=== PATIENT | male | born 1945 | race American Indian/Alaskan Native ===

== ENCOUNTER 2021-11-21 15:03 | Inpatient (IN) | payer OTHER ==
[2021-11-21 16:13] LABS: Basophils % (Auto) 0.3 % (0.0-1.8); Eosinophils # (Auto) 0.1 K/mm3 (0.0-0.4); Eosinophils % (Auto) 1.5 % (0.0-4.3); Hematocrit 27.9 % (35.5-45.6); Lymphocytes # (Auto) 1.2 K/mm3 (1.2-5.4); Lymphocytes % (Auto) 14.6 % (13.4-35.0); Mean Corpuscular HGB Conc 32 % (32-34); Mean Corpuscular Volume 94 fl (84-94); Monocytes # (Auto) 0.5 K/mm3 (0.0-0.8); Monocytes % (Auto) 6.6 % (0.0-7.3); Platelet Count 200 K/mm3 (140-440); Red Blood Count 2.96 M/mm3 (3.65-5.03); Red Cell Distribution Width 15.3 % (13.2-15.2)
[2021-11-21 17:36] LABS: Calcium 9.4 mg/dL (8.4-10.2)
--- NOTE | 2021-11-22 02:38 | Emergency Department Report ---
ED General Adult HPI - General Chief complaint: Abdominal Pain Stated complaint: PENIS BLEEDING/ABD PAIN Time Seen by Provider: 11/22/21 02:24 Source: patient Mode of arrival: Ambulatory Limitations: No Limitations - History of Present Illness Initial comments: 76 yo M with h/o stage 4 kidney failure and Prostate CA s/p proctectomy who present with painless urination associated bleeding as well. Pt also reports diarrhea for the last 2 days. Last episode of diarrhea was yesterday. Pt also reports remote painless urination. No fever or chills or any other modifying or associated factors reported. Severity scale (0 -10): 8 - Related Data Home Medications Medication Instructions Recorded Confirmed Last Taken Ascorbic Acid [Vitamin C with Jenn 500 mg PO BID 11/22/21 11/22/21 11/21/21 Hips] 899 Atorvastatin Calcium 40 mg PO QAM 11/22/21 11/22/21 11/21/21 Bumetanide [Bumetanide 2 mg tab] 2 mg DAILY 11/22/21 11/22/21 11/22/21 Cyanocobalamin [Vitamin B-12] 1,000 mcg PO DAILY 11/22/21 11/22/21 11/21/21 Donepezil HCl 10 mg HS 11/22/21 11/22/21 11/21/21 Ferrous Sulfate [Ferrous Sulfate 324 mg PO DAILY 11/22/21 11/22/21 11/21/21 324 MG] Folic Acid [Folvite] 0.5 mg PO QDAY 11/22/21 11/22/21 11/21/21 Megestrol Acetate 40 mg PO QID 11/22/21 11/22/21 11/21/21 Pantoprazole Sodium 20 mg PO DAILY 11/22/21 11/22/21 11/21/21 Sodium Bicarbonate 650 mg PO BID 11/22/21 11/22/21 11/21/21 Tamsulosin [Flomax] 0.4 mg DAILY 11/22/21 11/22/21 11/21/21 09 allopurinoL [Zyloprim] 100 mg PO QDAY 11/22/21 11/22/21 11/21/21 amLODIPine 5 mg PO DAILY 11/22/21 11/22/21 11/21/21 carvediloL [Coreg] 6.25 mg PO BID 11/22/21 11/22/21 11/21/21 Allergies Allergy/AdvReac Type Severity Reaction Status Date / Time No Known Allergies Allergy Verified 11/21/21 15:22 ED Review of Systems ROS: Stated complaint: PENIS BLEEDING/ABD PAIN Other details as noted in HPI Comment: All other systems reviewed and negative Gastrointestinal: diarrhea Genitourinary: hematuria ED Past Medical Hx - Past Medical History Previous Medical History?: Yes Hx Hypertension: Yes - Medications Home Medications: Home Medications Medication Instructions Recorded Confirmed Last Taken Type Ascorbic Acid [Vitamin C with Jenn 500 mg PO BID 11/22/21 11/22/21 11/21/21 History Hips] 899 Atorvastatin Calcium 40 mg PO QAM 11/22/21 11/22/21 11/21/21 History Bumetanide [Bumetanide 2 mg tab] 2 mg DAILY 11/22/21 11/22/21 11/22/21 History Cyanocobalamin [Vitamin B-12] 1,000 mcg PO DAILY 11/22/21 11/22/21 11/21/21 History Donepezil HCl 10 mg HS 11/22/21 11/22/21 11/21/21 History Ferrous Sulfate [Ferrous Sulfate 324 mg PO DAILY 11/22/21 11/22/21 11/21/21 History 324 MG] Folic Acid [Folvite] 0.5 mg PO QDAY 11/22/21 11/22/21 11/21/21 History Megestrol Acetate 40 mg PO QID 11/22/21 11/22/21 11/21/21 History Pantoprazole Sodium 20 mg PO DAILY 11/22/21 11/22/21 11/21/21 History Sodium Bicarbonate 650 mg PO BID 11/22/21 11/22/21 11/21/21 History Tamsulosin [Flomax] 0.4 mg DAILY 11/22/21 11/22/21 11/21/21 History 09 allopurinoL [Zyloprim] 100 mg PO QDAY 11/22/21 11/22/21 11/21/21 History amLODIPine 5 mg PO DAILY 11/22/21 11/22/21 11/21/21 History carvediloL [Coreg] 6.25 mg PO BID 11/22/21 11/22/21 11/21/21 History ED Physical Exam - General Limitations: No Limitations General appearance: alert, in no apparent distress - Head Head exam: Present: normal inspection - Eye Eye exam: Present: normal appearance Pupils: Present: normal accommodation - ENT ENT exam: Present: normal exam, normal orophraynx, mucous membranes dry - Neck Neck exam: Present: normal inspection, full ROM. Absent: tenderness - Respiratory Respiratory exam: Present: normal lung sounds bilaterally. Absent: respiratory distress, accessory muscle use - Cardiovascular Cardiovascular Exam: Present: regular rate, normal rhythm, normal heart sounds - GI/Abdominal GI/Abdominal exam: Present: soft, normal bowel sounds. Absent: distended, tenderness - exam: Present: urethral discharge (bloody ) - Extremities Exam Extremities exam: Absent: pedal edema - Back Exam Back exam: Absent: tenderness - Neurological Exam Neurological exam: Present: alert, oriented X3 - Psychiatric Psychiatric exam: Present: normal affect - Skin Skin exam: Present: warm, normal color ED Course Vital Signs 11/21/21 11/22/21 11/22/21 15:19 03:41 03:44 Temperature 99.7 F H 98.0 F Pulse Rate 85 84 Respiratory 17 14 Rate Blood Pressure Blood Pressure 154/81 152/78 [Right] O2 Sat by Pulse 100 94 100 Oximetry 11/22/21 11/22/21 11/22/21 03:45 04:01 04:15 Temperature Pulse Rate Respiratory Rate Blood Pressure 152/78 144/75 144/75 Blood Pressure [Right] O2 Sat by Pulse 100 100 100 Oximetry 11/22/21 11/22/21 11/22/21 05:00 05:01 05:15 Temperature 97.9 F Pulse Rate 70 Respiratory 18 Rate Blood Pressure 144/75 152/78 Blood Pressure 152/77 [Right] O2 Sat by Pulse 100 100 100 Oximetry 11/22/21 11/22/21 11/22/21 05:31 05:45 06:01 Temperature Pulse Rate Respiratory Rate Blood Pressure 144/75 151/76 139/77 Blood Pressure [Right] O2 Sat by Pulse 100 100 100 Oximetry 11/22/21 11/22/21 11/22/21 06:15 06:31 06:45 Temperature Pulse Rate Respiratory Rate Blood Pressure 141/68 154/77 149/67 Blood Pressure [Right] O2 Sat by Pulse 100 100 100 Oximetry 11/22/21 11/22/21 11/22/21 07:01 07:15 07:31 Temperature Pulse Rate Respiratory Rate Blood Pressure 134/65 139/68 158/68 Blood Pressure [Right] O2 Sat by Pulse 100 100 100 Oximetry 11/22/21 11/22/21 11/22/21 07:46 10:04 10:16 Temperature Pulse Rate Respiratory Rate Blood Pressure 158/68 158/68 143/64 Blood Pressure [Right] O2 Sat by Pulse 100 100 100 Oximetry 11/22/21 11/22/21 11/22/21 10:30 10:46 11:00 Temperature Pulse Rate Respiratory Rate Blood Pressure 143/64 133/54 133/54 Blood Pressure [Right] O2 Sat by Pulse 100 100 100 Oximetry 11/22/21 11/22/21 11/22/21 12:15 12:31 12:45 Temperature Pulse Rate Respiratory Rate Blood Pressure 87/46 144/65 137/65 Blood Pressure [Right] O2 Sat by Pulse 99 99 Oximetry 11/22/21 11/22/21 11/22/21 13:01 13:15 13:31 Temperature Pulse Rate 88 84 87 Respiratory 15 14 12 Rate Blood Pressure 87/46 147/69 147/69 Blood Pressure [Right] O2 Sat by Pulse 99 100 100 Oximetry 11/22/21 11/22/21 11/22/21 13:45 14:01 14:15 Temperature Pulse Rate 88 86 91 H Respiratory 15 14 18 Rate Blood Pressure 131/69 131/69 143/67 Blood Pressure [Right] O2 Sat by Pulse 100 100 99 Oximetry 11/22/21 11/22/21 11/22/21 14:31 14:45 15:01 Temperature Pulse Rate 100 H 109 H 92 H Respiratory 20 21 15 Rate Blood Pressure 143/67 136/104 136/104 Blood Pressure [Right] O2 Sat by Pulse 100 100 Oximetry 11/22/21 11/22/21 11/22/21 15:02 15:15 15:31 Temperature Pulse Rate 92 H 105 H Respiratory 20 15 Rate Blood Pressure 131/69 131/69 Blood Pressure [Right] O2 Sat by Pulse 100 100 100 Oximetry 11/22/21 11/22/21 15:45 16:01 Temperature Pulse Rate 91 H 93 H Respiratory 16 18 Rate Blood Pressure 128/69 128/69 Blood Pressure [Right] O2 Sat by Pulse 100 100 Oximetry ED Medical Decision Making - Lab Data Result diagrams: 11/22/21 12:22 11/22/21 02:49 - Medical Decision Making here with painful hematuria with diarrhea -- this could be UTI and or bladder mass so will start by checking UA and routine coag profile -- Labs reviewed and noted with low H&H that is likely from his chronic renal failure with his stage 4 kidney failure. Will go ahead and start CBI until cleared and will discharge home with baxter catheter in place. Noticed improvement clot clearing with the second bag half way done-- but then noticed with bright red blood as soon as the 2nd bag of fluid was done. Will go ahead and start another 2,000 cc irrigation ns -- Critical care attestation.: If time is entered above; I have spent that time in minutes in the direct care of this critically ill patient, excluding procedure time. ED Disposition Clinical Impression: Stage 4 chronic kidney disease, Bladder hemorrhage, Painless hematuria Diarrhea Qualifiers: Diarrhea type: unspecified type Qualified Code(s): R19.7 - Diarrhea, unspecified Disposition: 09 ADMITTED INPATIENT Is pt being admited?: Yes Does the pt Need Aspirin: No Condition: Stable
[2021-11-22 03:21] LABS: INR 0.97 (0.87-1.13); Partial Thromboplastin Time 28.3 Sec. (24.2-36.6)
[2021-11-22 03:42] LABS: Alanine Aminotransferase 17 units/L (7-56); Albumin 4.5 g/dL (3.9-5); Blood Urea Nitrogen 87 mg/dL (9-20); Calcium 9.3 mg/dL (8.4-10.2); Hemolysis Index 1
[2021-11-22] MEDS ORDERED: SODIUM CHLORIDE 0.9% 1000 ML 3,000 ML IV ONE (04:00)
[2021-11-22 04:07] LABS: BUN/Creatinine Ratio 23; Bilirubin,Direct < 0.2 mg/dL (0-0.2)
[2021-11-22] MEDS: LIDOCAINE 2% UROJECT 10 ML JELLY UR ONE ×2 (04:10→17:45)
[2021-11-22 04:17] LABS: Color,Urine Red (Yellow); RBC,Urine > 182.0 /HPF (0.0-6.0)
[2021-11-22] MEDS: SODIUM CHLORIDE 0.9% IRRIG SOLN 2000 ML IR PRN ×3 (04:20→06:10)
[2021-11-22] MEDS ORDERED: SODIUM CHLORIDE 0.9% IRRIG SOLN 2000 ML IR SCH ×2 (06:00)
--- NOTE | 2021-11-22 07:29 | Emergency Department Report ---
ED Male HPI - General Chief complaint: Abdominal Pain Stated complaint: PENIS BLEEDING/ABD PAIN Time Seen by Provider: 11/22/21 02:24 Source: patient Mode of arrival: Ambulatory Limitations: No Limitations - Related Data Allergies Allergy/AdvReac Type Severity Reaction Status Date / Time No Known Allergies Allergy Verified 11/21/21 15:22 ED Review of Systems ROS: Stated complaint: PENIS BLEEDING/ABD PAIN Other details as noted in HPI Gastrointestinal: diarrhea Genitourinary: hematuria ED Past Medical Hx - Past Medical History Previous Medical History?: Yes Hx Hypertension: Yes ED Physical Exam - General Limitations: No Limitations General appearance: alert, in no apparent distress ED Course Vital Signs 11/21/21 11/22/21 11/22/21 15:19 03:44 05:00 Temperature 99.7 F H 98.0 F 97.9 F Pulse Rate 85 84 70 Respiratory 17 14 18 Rate Blood Pressure 154/81 152/78 152/77 [Right] O2 Sat by Pulse 100 100 100 Oximetry ED Medical Decision Making - Lab Data Result diagrams: 11/21/21 15:44 11/22/21 02:49 Critical care attestation.: If time is entered above; I have spent that time in minutes in the direct care of this critically ill patient, excluding procedure time. ED Disposition Disposition: 30 STILL A PATIENT Condition: Stable [facility]: [facility] [Other] - 3-5 Days
--- NOTE | 2021-11-22 07:34 | Emergency Department Report ---
ED Male HPI - General Chief complaint: Abdominal Pain Stated complaint: PENIS BLEEDING/ABD PAIN Time Seen by Provider: 11/22/21 02:24 Source: patient Mode of arrival: Ambulatory Limitations: No Limitations - History of Present Illness Initial comments: 76-year-old male who was patient seen initially seen by Dr. Monahan and signed out to me to d/c after bladder irrigation. Patient reinterviewed and examined. by me Patient presents to the hospital complaining of suprapubic pain, gross hematuria, dysuria, difficulty urinating for the past 2 days. Patient reports that he has a history of bladder cancer treated with prostatectomy in 1991. States he has had intermittent pink urine output that spontaneously resolved. This is the first time patient has had gross hematuria with associated symptoms reported. He denies nausea, vomiting, or fever. Patient also reports a history of chronic kidney disease and reports a creatinine of 3.4 2-3 weeks ago. Patient resides in [place] and is visiting the [place] area. [facility] Patient was treated with Baxter catheter and 4 L Alexander drip irrigation with reported clearance and leg bag was placed. Leg bag currently shows gross hematuria once again however, patient denies pain at this time He takes aspirin 81 mg but denies other anticoagulant use - Related Data Home Medications Medication Instructions Recorded Confirmed Last Taken Ascorbic Acid [Vitamin C with Jenn 500 mg PO BID 11/22/21 11/22/21 11/21/21 Hips] 0900 Atorvastatin Calcium 40 mg PO QAM 11/22/21 11/22/21 11/21/21 Bumetanide [Bumetanide 2 mg tab] 2 mg DAILY 11/22/21 11/22/21 11/22/21 Cyanocobalamin [Vitamin B-12] 1,000 mcg PO DAILY 11/22/21 11/22/21 11/21/21 Donepezil HCl 10 mg HS 11/22/21 11/22/21 11/21/21 Ferrous Sulfate [Ferrous Sulfate 324 mg PO DAILY 11/22/21 11/22/21 11/21/21 324 MG] Folic Acid [Folvite] 0.5 mg PO QDAY 11/22/21 11/22/21 11/21/21 Megestrol Acetate 40 mg PO QID 11/22/21 11/22/21 11/21/21 Pantoprazole Sodium 20 mg PO DAILY 11/22/21 11/22/21 11/21/21 Sodium Bicarbonate 650 mg PO BID 11/22/21 11/22/21 11/21/21 Tamsulosin [Flomax] 0.4 mg DAILY 11/22/21 11/22/21 11/21/21 0900 allopurinoL [Zyloprim] 100 mg PO QDAY 11/22/21 11/22/21 11/21/21 amLODIPine 5 mg PO DAILY 11/22/21 11/22/21 11/21/21 carvediloL [Coreg] 6.25 mg PO BID 11/22/21 11/22/21 11/21/21 Allergies Allergy/AdvReac Type Severity Reaction Status Date / Time No Known Allergies Allergy Verified 11/21/21 15:22 ED Review of Systems ROS: Stated complaint: PENIS BLEEDING/ABD PAIN Other details as noted in HPI Comment: Unobtainable due to pts medical conditions Gastrointestinal: diarrhea Genitourinary: hematuria ED Past Medical Hx - Past Medical History Previous Medical History?: Yes Hx Hypertension: Yes - Medications Home Medications: Home Medications Medication Instructions Recorded Confirmed Last Taken Type Ascorbic Acid [Vitamin C with Jenn 500 mg PO BID 11/22/21 11/22/21 11/21/21 History Hips] 899 Atorvastatin Calcium 40 mg PO QAM 11/22/21 11/22/21 11/21/21 History Bumetanide [Bumetanide 2 mg tab] 2 mg DAILY 11/22/21 11/22/21 11/22/21 History Cyanocobalamin [Vitamin B-12] 1,000 mcg PO DAILY 11/22/21 11/22/21 11/21/21 History Donepezil HCl 10 mg HS 11/22/21 11/22/21 11/21/21 History Ferrous Sulfate [Ferrous Sulfate 324 mg PO DAILY 11/22/21 11/22/21 11/21/21 History 324 MG] Folic Acid [Folvite] 0.5 mg PO QDAY 11/22/21 11/22/21 11/21/21 History Megestrol Acetate 40 mg PO QID 11/22/21 11/22/21 11/21/21 History Pantoprazole Sodium 20 mg PO DAILY 11/22/21 11/22/21 11/21/21 History Sodium Bicarbonate 650 mg PO BID 11/22/21 11/22/21 11/21/21 History Tamsulosin [Flomax] 0.4 mg DAILY 11/22/21 11/22/21 11/21/21 History 0900 allopurinoL [Zyloprim] 100 mg PO QDAY 11/22/21 11/22/21 11/21/21 History amLODIPine 5 mg PO DAILY 11/22/21 11/22/21 11/21/21 History carvediloL [Coreg] 6.25 mg PO BID 11/22/21 11/22/21 11/21/21 History ED Physical Exam - General Limitations: No Limitations General appearance: alert, in no apparent distress - GI/Abdominal GI/Abdominal exam: Present: soft, distended, normal bowel sounds. Absent: tenderness, guarding, rebound - exam: Present: other (baxter with gross hematuria) ED Course Vital Signs 11/21/21 11/22/21 11/22/21 15:19 03:41 03:44 Temperature 99.7 F H 98.0 F Pulse Rate 85 84 Respiratory 17 14 Rate Blood Pressure Blood Pressure 154/81 152/78 [Right] O2 Sat by Pulse 100 94 100 Oximetry 11/22/21 11/22/21 11/22/21 03:45 04:01 04:15 Temperature Pulse Rate Respiratory Rate Blood Pressure 152/78 144/75 144/75 Blood Pressure [Right] O2 Sat by Pulse 100 100 100 Oximetry 11/22/21 11/22/21 11/22/21 05:00 05:01 05:15 Temperature 97.9 F Pulse Rate 70 Respiratory 18 Rate Blood Pressure 144/75 152/78 Blood Pressure 152/77 [Right] O2 Sat by Pulse 100 100 100 Oximetry 11/22/21 11/22/21 11/22/21 05:31 05:45 06:01 Temperature Pulse Rate Respiratory Rate Blood Pressure 144/75 151/76 139/77 Blood Pressure [Right] O2 Sat by Pulse 100 100 100 Oximetry 11/22/21 11/22/21 11/22/21 06:15 06:31 06:45 Temperature Pulse Rate Respiratory Rate Blood Pressure 141/68 154/77 149/67 Blood Pressure [Right] O2 Sat by Pulse 100 100 100 Oximetry 11/22/21 11/22/21 11/22/21 07:01 07:15 07:31 Temperature Pulse Rate Respiratory Rate Blood Pressure 134/65 139/68 158/68 Blood Pressure [Right] O2 Sat by Pulse 100 100 100 Oximetry 11/22/21 11/22/21 11/22/21 07:46 10:04 10:16 Temperature Pulse Rate Respiratory Rate Blood Pressure 158/68 158/68 143/64 Blood Pressure [Right] O2 Sat by Pulse 100 100 100 Oximetry 11/22/21 11/22/21 11/22/21 10:30 10:46 11:00 Temperature Pulse Rate Respiratory Rate Blood Pressure 143/64 133/54 133/54 Blood Pressure [Right] O2 Sat by Pulse 100 100 100 Oximetry 11/22/21 11/22/21 11/22/21 12:15 12:31 12:45 Temperature Pulse Rate Respiratory Rate Blood Pressure 87/46 144/65 137/65 Blood Pressure [Right] O2 Sat by Pulse 99 99 Oximetry 11/22/21 11/22/21 11/22/21 13:01 13:15 13:31 Temperature Pulse Rate 88 84 87 Respiratory 15 14 12 Rate Blood Pressure 87/46 147/69 147/69 Blood Pressure [Right] O2 Sat by Pulse 99 100 100 Oximetry 11/22/21 11/22/21 11/22/21 13:45 14:01 14:15 Temperature Pulse Rate 88 86 91 H Respiratory 15 14 18 Rate Blood Pressure 131/69 131/69 143/67 Blood Pressure [Right] O2 Sat by Pulse 100 100 99 Oximetry 11/22/21 11/22/21 11/22/21 14:31 14:45 15:01 Temperature Pulse Rate 100 H 109 H 92 H Respiratory 20 21 15 Rate Blood Pressure 143/67 136/104 136/104 Blood Pressure [Right] O2 Sat by Pulse 100 100 Oximetry 11/22/21 11/22/21 11/22/21 15:02 15:15 15:31 Temperature Pulse Rate 92 H 105 H Respiratory 20 15 Rate Blood Pressure 131/69 131/69 Blood Pressure [Right] O2 Sat by Pulse 100 100 100 Oximetry 11/22/21 11/22/21 11/22/21 15:45 16:01 16:13 Temperature Pulse Rate 91 H 93 H 112 H Respiratory 16 18 28 H Rate Blood Pressure 128/69 128/69 111/79 Blood Pressure [Right] O2 Sat by Pulse 100 100 100 Oximetry - Reevaluation(s) Reevaluation #1: 11/22/21 11:51 pt Baxter catheter is obstructed and we were unable to irrigate it to free be obstruction. Patient also complaining of suprapubic pain. Pain medicine ordered and nurse instructed to exchange for a new three-way catheter this alleviated obstruction, new cath is draining 11/22/21 12:28 Patient has hypotension after morphine with systolic in the 80s. 1 L of normal saline order. Repeat H&H pending. Type and screen ordered 11/22/21 13:51 BP improved with IVF bolus repat hgb 8.1 (down from 9 yesterday) ED Medical Decision Making - Lab Data Result diagrams: 11/23/21 04:29 11/23/21 04:29 Lab Results 11/21/21 11/21/21 11/22/21 Range/Units 15:44 15:44 02:49 WBC 7.9 (4.5-11.0) K/mm3 RBC 2.96 L (3.65-5.03) M/mm3 Hgb 9.0 L (11.8-15.2) gm/dl Hct 27.9 L (35.5-45.6) % MCV 94 (84-94) fl MCH 31 (28-32) pg MCHC 32 (32-34) % RDW 15.3 H (13.2-15.2) % Plt Count 200 (140-440) K/mm3 Lymph % (Auto) 14.6 (13.4-35.0) % [place] % (Auto) 6.6 (0.0-7.3) % Eos % (Auto) 1.5 (0.0-4.3) % Baso % (Auto) 0.3 (0.0-1.8) % Lymph # (Auto) 1.2 (1.2-5.4) K/mm3 [place] # (Auto) 0.5 (0.0-0.8) K/mm3 Eos # (Auto) 0.1 (0.0-0.4) K/mm3 Baso # (Auto) 0.0 (0.0-0.1) K/mm3 Seg Neutrophils % 77.0 H (40.0-70.0) % Seg Neutrophils # 6.1 (1.8-7.7) K/mm3 PT 14.0 (12.2-14.9) Sec. INR 0.97 (0.87-1.13) APTT 28.3 (24.2-36.6) Sec. Sodium 138 (137-145) mmol/L Potassium 4.6 (3.6-5.0) mmol/L Chloride 103.8 (98-107) mmol/L Carbon Dioxide 20 L (22-30) mmol/L Anion Gap 19 mmol/L BUN 84 H (9-20) mg/dL Creatinine 3.9 H (0.8-1.3) mg/dL Estimated GFR 15 ml/min BUN/Creatinine Ratio 22 % Glucose 121 H (75-100) mg/dL Calcium 9.4 (8.4-10.2) mg/dL Total Bilirubin (0.1-1.2) mg/dL Direct Bilirubin (0-0.2) mg/dL Indirect Bilirubin mg/dL AST (5-40) units/L ALT (7-56) units/L Alkaline Phosphatase (35-129) units/L Total Protein (6.3-8.2) g/dL Albumin (3.9-5) g/dL Albumin/Globulin Ratio % Lipase 115 H (13-60) units/L Urine Color (Yellow) Urine Turbidity (Clear) Specific [place] (Man) (1.003-1.030) Ur Protein (Man) (Negative) mg/dL Ur Ketones (Man) (Negative) Ur Nitrite (Man) (Negative) Urine Bilirubin (Man) (Negative) Urine Ictotest Leukocyte Esterase (Man) (Negative) Urine WBC (Auto) (0.0-6.0) /HPF Urine RBC (Auto) (0.0-6.0) /HPF Urine RBC (Manual) (Negative) 11/22/21 11/22/21 Range/Units 02:49 03:53 WBC (4.5-11.0) K/mm3 RBC (3.65-5.03) M/mm3 Hgb (11.8-15.2) gm/dl Hct (35.5-45.6) % MCV (84-94) fl MCH (28-32) pg MCHC (32-34) % RDW (13.2-15.2) % Plt Count (140-440) K/mm3 Lymph % (Auto) (13.4-35.0) % [place] % (Auto) (0.0-7.3) % Eos % (Auto) (0.0-4.3) % Baso % (Auto) (0.0-1.8) % Lymph # (Auto) (1.2-5.4) K/mm3 [place] # (Auto) (0.0-0.8) K/mm3 Eos # (Auto) (0.0-0.4) K/mm3 Baso # (Auto) (0.0-0.1) K/mm3 Seg Neutrophils % (40.0-70.0) % Seg Neutrophils # (1.8-7.7) K/mm3 PT (12.2-14.9) Sec. INR (0.87-1.13) APTT (24.2-36.6) Sec. Sodium 139 (137-145) mmol/L Potassium 4.8 (3.6-5.0) mmol/L Chloride 105.4 (98-107) mmol/L Carbon Dioxide 17 L (22-30) mmol/L Anion Gap 21 mmol/L BUN 87 H (9-20) mg/dL Creatinine 3.8 H (0.8-1.3) mg/dL Estimated GFR 15 ml/min BUN/Creatinine Ratio 23 % Glucose 119 H (75-100) mg/dL Calcium 9.3 (8.4-10.2) mg/dL Total Bilirubin 0.30 (0.1-1.2) mg/dL Direct Bilirubin < 0.2 (0-0.2) mg/dL Indirect Bilirubin 0.1 mg/dL AST 18 (5-40) units/L ALT 17 (7-56) units/L Alkaline Phosphatase 63 (35-129) units/L Total Protein 7.0 (6.3-8.2) g/dL Albumin 4.5 (3.9-5) g/dL Albumin/Globulin Ratio 1.8 % Lipase 98 H (13-60) units/L Urine Color Red (Yellow) Urine Turbidity Turbid (Clear) Specific [place] (Man) 1.020 (1.003-1.030) Ur Protein (Man) >500 (Negative) mg/dL Ur Ketones (Man) Negative (Negative) Ur Nitrite (Man) Negative (Negative) Urine Bilirubin (Man) Negative (Negative) Urine Ictotest Not Reportable Leukocyte Esterase (Man) Small (Negative) Urine WBC (Auto) 52.0 H (0.0-6.0) /HPF Urine RBC (Auto) > 182.0 (0.0-6.0) /HPF Urine RBC (Manual) 3+ (Negative) - Radiology Data Radiology results: report reviewed CT ABDOMEN AND PELVIS WITHOUT CONTRAST INDICATION / CLINICAL INFORMATION: hematuria. TECHNIQUE: Axial CT images were obtained through the abdomen and pelvis without IV contrast. All CT scans at this location are performed using CT dose reduction for ALARA by means of automated exposure control. COMPARISON: None available. FINDINGS: LOWER CHEST: No significant abnormality. LIVER: No significant abnormality. GALLBLADDER: No significant abnormality. BILE DUCTS: No significant abnormality. PANCREAS: No significant abnormality. SPLEEN: No significant abnormality. ADRENALS: No significant abnormality. RIGHT KIDNEY / URETER: 3.8 cm hypodense lesion with CT density of 9 characteristic for cyst. Mild right sided hydronephrosis LEFT KIDNEY / URETER: 4.9 cm left upper pole slightly complex renal cyst with thin peripheral calcification with CT density of 11. STOMACH / SMALL BOWEL: No significant abnormality. COLON: Moderate colonic diverticulosis. APPENDIX: No significant abnormality. PERITONEUM: No free fluid. No free air. No fluid collection. LYMPH NODES: No significant adenopathy. AORTA / ARTERIES: No significant abnormality. IVC / VEINS: No significant abnormality. URINARY BLADDER: Contains Baxter catheter with moderate to large amount of intraluminal hemorrhage. 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 IMPRESSION: 1. Large amount of hemorrhage within the bladder of uncertain etiology with mild right hydronephrosis. 2. No urinary tract calculi or obvious enhancing solid renal or bladder mass on this limited noncontrast exam 2. Bilateral renal cysts, slightly complex upper pole left kidney. - Medical Decision Making 76-year-old male with persistent hematuria despite copious bladder irrigation. CT after irrigation attempts reveals a large amount of blood in the bladder. Pt had obstruction of cath requiring cath exchange while in the ED. IV Rocephin provided for increased RBC count/UTI. Renal function normal. Mild anemia noted. Repeat H&H ordered. type and sreen ordered. Patient takes aspirin 81 mg. case discussed with Dr. Simms who agrees to admit and consult urology Critical Care Time: No Critical care attestation.: If time is entered above; I have spent that time in minutes in the direct care of this critically ill patient, excluding procedure time. ED Disposition Clinical Impression: Stage 4 chronic kidney disease, Bladder hemorrhage, Painless hematuria, UTI (urinary tract infection) Diarrhea Qualifiers: Diarrhea type: unspecified type Qualified Code(s): R19.7 - Diarrhea, unspecified Disposition: 09 ADMITTED INPATIENT Is pt being admited?: Yes Condition: Stable Time of Disposition: 11:44 (Dr Simms/hosp)
--- NOTE | 2021-11-22 10:35 | Cat Scan Report ---
CT ABDOMEN AND PELVIS WITHOUT CONTRAST INDICATION / CLINICAL INFORMATION: hematuria. TECHNIQUE: Axial CT images were obtained through the abdomen and pelvis without IV contrast. All CT scans at this location are performed using CT dose reduction for ALARA by means of automated exposure control. COMPARISON: None available. FINDINGS: LOWER CHEST: No significant abnormality. LIVER: No significant abnormality. GALLBLADDER: No significant abnormality. BILE DUCTS: No significant abnormality. PANCREAS: No significant abnormality. SPLEEN: No significant abnormality. ADRENALS: No significant abnormality. RIGHT KIDNEY / URETER: 3.8 cm hypodense lesion with CT density of 9 characteristic for cyst. Mild rig ht sided hydronephrosis LEFT KIDNEY / URETER: 4.9 cm left upper pole slightly complex renal cyst with thin peripheral calcifi cation with CT density of 11. STOMACH / SMALL BOWEL: No significant abnormality. COLON: Moderate colonic diverticulosis. APPENDIX: No significant abnormality. PERITONEUM: No free fluid. No free air. No fluid collection. LYMPH NODES: No significant adenopathy. AORTA / ARTERIES: No significant abnormality. IVC / VEINS: No significant abnormality. URINARY BLADDER: Contains Flores catheter with moderate to large amount of intraluminal hemorrhage. 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 IMPRESSION: 1. Large amount of hemorrhage within the bladder of uncertain etiology with mild right hydronephrosis . 2. No urinary tract calculi or obvious enhancing solid renal or bladder mass on this limited noncontr ast exam 2. Bilateral renal cysts, slightly complex upper pole left kidney. Signer Name: Hai Diaz MD Signed: 11/22/2021 10:31 AM Workstation Name: [email or web address]
[2021-11-22] MEDS ORDERED: ONDANSETRON 4 MG/2 ML INJ IV PRN ×2 (11:45→18:30)
[2021-11-22] MEDS ORDERED: ACETAMINOPHEN 325 MG TAB PO PRN ×2 (11:45→18:30)
[2021-11-22] MEDS ORDERED: MORPHINE 4 MG/1 ML INJ IV ONE (11:50)
[2021-11-22] MEDS ORDERED: SODIUM CHLORIDE 0.9% 1000 ML 1,000 ML IV ONE (12:17)
[2021-11-22] MEDS ORDERED: SODIUM CHLORIDE 0.9% 1000 ML 1,000 ML ONE (12:18)
--- NOTE | 2021-11-22 12:18 | History and Physical Report ---
History of Present Illness Date of examination: 11/22/21 Date of admission: 11/22/2021 Chief complaint: Hematuria since yesterday History of present illness: Patient presents to the hospital complaining of suprapubic pain, gross hematuria, dysuria, difficulty urinating for the past 2 days. Patient reports that he has a history of bladder cancer treated with prostatectomy in 1991. States he has had intermittent pink urine output that spontaneously resolved. This is the first time patient has had gross hematuria with associated symptoms reported. He denies nausea, vomiting, or fever. Patient also reports a history of chronic kidney disease and reports a cre atinine of 3.4 2-3 weeks ago. Patient resides in [place] and is visiting the [place] area. His doctors are affiliated with the [place] [facility] Patient was treated with Flores catheter and 4 L Alexander drip irrigation with reported clearance and leg bag was placed. Leg bag currently shows gross hematuria once again however, patient denies pain at this time He takes aspirin 81 mg but denies other anticoagulant use - Past Medical History --Previous Medical History?: Yes --Hypertension: Yes --CKD -past surgical history --Prostatectomy 1991 - Family history -- Htn Review of Systems --ROS: --Stated complaint: PENIS BLEEDING/ABD PAIN --Other details as noted in HPI --Comment: Unobtainable due to pts medical conditions --Gastrointestinal: diarrhea --Genitourinary: hematuria Medications and Allergies Allergies Allergy/AdvReac Type Severity Reaction Status Date / Time No Known Allergies Allergy Verified 11/21/21 15:22 Home Medications Medication Instructions Recorded Confirmed Last Taken Type Ascorbic Acid [Vitamin C with Jenn 500 mg PO BID 11/22/21 11/22/21 11/21/21 History Hips] 0900 Atorvastatin Calcium 40 mg PO QAM 11/22/21 11/22/21 11/21/21 History Bumetanide [Bumetanide 2 mg tab] 2 mg DAILY 11/22/21 11/22/21 11/22/21 History Cyanocobalamin [Vitamin B-12] 1,000 mcg PO DAILY 11/22/21 11/22/21 11/21/21 History Donepezil HCl 10 mg HS 11/22/21 11/22/21 11/21/21 History Ferrous Sulfate [Ferrous Sulfate 324 mg PO DAILY 11/22/21 11/22/21 11/21/21 History 324 MG] Folic Acid [Folvite] 0.5 mg PO QDAY 11/22/21 11/22/21 11/21/21 History Megestrol Acetate 40 mg PO QID 11/22/21 11/22/21 11/21/21 History Pantoprazole Sodium 20 mg PO DAILY 11/22/21 11/22/21 11/21/21 History Sodium Bicarbonate 650 mg PO BID 11/22/21 11/22/21 11/21/21 History Tamsulosin [Flomax] 0.4 mg DAILY 11/22/21 11/22/21 11/21/21 History 00 allopurinoL [Zyloprim] 100 mg PO QDAY 11/22/21 11/22/21 11/21/21 History amLODIPine 5 mg PO DAILY 11/22/21 11/22/21 11/21/21 History carvediloL [Coreg] 6.25 mg PO BID 11/22/21 11/22/21 11/21/21 History Active Meds: Active Medications Acetaminophen (Acetaminophen 325 Mg Tab) 650 mg PO Q4H PRN PRN Reason: Pain MILD(1-3)/Fever >100.5/CALVILLO Sodium Chloride (Nacl 0.9% 1000 Ml) 1,000 mls @ 999 mls/hr IV BOLUS ONE Stop: 11/22/21 13:17 Morphine Sulfate (Morphine 2 Mg/1 Ml Inj) 2 mg IV Q4H PRN PRN Reason: Pain, Moderate (4-6) Ondansetron HCl (Ondansetron 4 Mg/2 Ml Inj) 4 mg IV Q8H PRN PRN Reason: Nausea And Vomiting Sodium Chloride (Sodium Chloride 0.9% Irrig Soln 2000 Ml) 2,000 ml IR DIRECT PRN PRN Reason: IRRIGATION Last Admin: 11/22/21 06:10 Dose: 2,000 ml Sodium Chloride (Sodium Chloride 0.9% 10 Ml Flush Syringe) 10 ml IV BID MARTHA Sodium Chloride (Sodium Chloride 0.9% 10 Ml Flush Syringe) 10 ml IV PRN PRN PRN Reason: LINE FLUSH Exam - Constitutional Vitals: Temp Pulse Resp BP Pulse Ox 97.9 F 70 18 152/77 100 11/22/21 05:00 11/22/21 05:00 11/22/21 05:00 11/22/21 05:00 11/22/21 05:00 General appearance: Present: no acute distress, well-nourished - EENT Eyes: Present: PERRL ENT: hearing intact, clear oral mucosa - Neck Neck: Present: supple, normal ROM - Respiratory Respiratory effort: normal Respiratory: bilateral: CTA - Cardiovascular Heart rate: 78 Rhythm: regular Heart Sounds: Present: S1 & S2. Absent: rub, click - Extremities Extremities: no ischemia, pulses intact, pulses symmetrical, No edema Peripheral Pulses: within normal limits - Abdominal General gastrointestinal: Present: soft, non-tender, non-distended, normal bowel sounds Male genitourinary: Present: normal (Abnormal--severe hematuria which is new onset) - Rectal Rectal Exam: deferred - Integumentary Integumentary: Present: clear, warm, dry - Musculoskeletal Musculoskeletal: gait normal, strength equal bilaterally - Psychiatric Psychiatric: appropriate mood/affect, intact judgment & insight - Neurologic Neurologic: CNII-XII intact, moves all extremities - Allied Health Allied health notes reviewed: nursing, social work, case management Results - Labs CBC & Chem 7: 11/23/21 04:29 11/23/21 04:29 Labs: Laboratory Last Values WBC 7.9 K/mm3 (4.5-11.0) 11/21/21 15:44 RBC 2.96 M/mm3 (3.65-5.03) L 11/21/21 15:44 Hgb 9.0 gm/dl (11.8-15.2) L 11/21/21 15:44 Hct 27.9 % (35.5-45.6) L 11/21/21 15:44 MCV 94 fl (84-94) 11/21/21 15:44 MCH 31 pg (28-32) 11/21/21 15:44 MCHC 32 % (32-34) 11/21/21 15:44 RDW 15.3 % (13.2-15.2) H 11/21/21 15:44 Plt Count 200 K/mm3 (140-440) 11/21/21 15:44 Lymph % (Auto) 14.6 % (13.4-35.0) 11/21/21 15:44 [place]on % (Auto) 6.6 % (0.0-7.3) 11/21/21 15:44 Eos % (Auto) 1.5 % (0.0-4.3) 11/21/21 15:44 Baso % (Auto) 0.3 % (0.0-1.8) 11/21/21 15:44 Lymph # (Auto) 1.2 K/mm3 (1.2-5.4) 11/21/21 15:44 Fulton # (Auto) 0.5 K/mm3 (0.0-0.8) 11/21/21 15:44 Eos # (Auto) 0.1 K/mm3 (0.0-0.4) 11/21/21 15:44 Baso # (Auto) 0.0 K/mm3 (0.0-0.1) 11/21/21 15:44 Seg Neutrophils % 77.0 % (40.0-70.0) H 11/21/21 15:44 Seg Neutrophils # 6.1 K/mm3 (1.8-7.7) 11/21/21 15:44 PT 14.0 Sec. (12.2-14.9) 11/22/21 02:49 INR 0.97 (0.87-1.13) 11/22/21 02:49 APTT 28.3 Sec. (24.2-36.6) 11/22/21 02:49 Sodium 139 mmol/L (137-145) 11/22/21 02:49 Potassium 4.8 mmol/L (3.6-5.0) 11/22/21 02:49 Chloride 105.4 mmol/L (98-107) 11/22/21 02:49 Carbon Dioxide 17 mmol/L (22-30) L 11/22/21 02:49 Anion Gap 21 mmol/L 11/22/21 02:49 BUN 87 mg/dL (9-20) H 11/22/21 02:49 Creatinine 3.8 mg/dL (0.8-1.3) H 11/22/21 02:49 Estimated GFR 15 ml/min 11/22/21 02:49 BUN/Creatinine Ratio 23 % 11/22/21 02:49 Glucose 119 mg/dL (75-100) H 11/22/21 02:49 Calcium 9.3 mg/dL (8.4-10.2) 11/22/21 02:49 Total Bilirubin 0.30 mg/dL (0.1-1.2) 11/22/21 02:49 Direct Bilirubin < 0.2 mg/dL (0-0.2) 11/22/21 02:49 Indirect Bilirubin 0.1 mg/dL 11/22/21 02:49 AST 18 units/L (5-40) 11/22/21 02:49 ALT 17 units/L (7-56) 11/22/21 02:49 Alkaline Phosphatase 63 units/L (35-129) 11/22/21 02:49 Total Protein 7.0 g/dL (6.3-8.2) 11/22/21 02:49 Albumin 4.5 g/dL (3.9-5) 11/22/21 02:49 Albumin/Globulin Ratio 1.8 % 11/22/21 02:49 Lipase 98 units/L (13-60) H 11/22/21 02:49 Urine Color Red (Yellow) 11/22/21 03:53 Urine Turbidity Turbid (Clear) 11/22/21 03:53 Specific Simpson (Man) 1.020 (1.003-1.030) 11/22/21 03:53 Ur Protein (Man) >500 mg/dL (Negative) 11/22/21 03:53 Ur Ketones (Man) Negative (Negative) 11/22/21 03:53 Ur Nitrite (Man) Negative (Negative) 11/22/21 03:53 Urine Bilirubin (Man) Negative (Negative) 11/22/21 03:53 Urine Ictotest Not Reportable 11/22/21 03:53 Leukocyte Esterase (Man) Small (Negative) 11/22/21 03:53 Urine WBC (Auto) 52.0 /HPF (0.0-6.0) H 11/22/21 03:53 Urine RBC (Auto) > 182.0 /HPF (0.0-6.0) 11/22/21 03:53 Urine RBC (Manual) 3+ (Negative) 11/22/21 03:53 Assessment and Plan Advance Directives: Yes (Full code) VTE prophylaxis?: Chemical Plan of care discussed with patient/family: Yes - Patient Problems (1) Hematuria Current Visit: Yes Status: Acute Qualifiers: Hematuria type: gross Qualified Code(s): R31.0 - Gross hematuria Plan to address problem: Severe hematuria Patient on Alexander drip for irrigation of the bladder Urology consulted Rule out bladder cancer Hemoglobin and hematocrit every 8 hours Transfuse if necessary Urology informed (2) Stage 4 chronic kidney disease Current Visit: Yes Status: Chronic Plan to address problem: Nephrology consulted (3) HTN (hypertension) Current Visit: Yes Status: Chronic Qualifiers: Hypertension type: primary hypertension Qualified Code(s): I10 - Essential (primary) hypertension Plan to address problem: Continue antihypertensives and adjust medications as necessary (4) Hyperlipidemia Current Visit: Yes Status: Chronic Qualifiers: Hyperlipidemia type: mixed hyperlipidemia Qualified Code(s): E78.2 - Mixed hyperlipidemia Plan to address problem: Hold statins for now can be resumed after discharge (5) GERD (gastroesophageal reflux disease) Current Visit: Yes Status: Chronic Qualifiers: Esophagitis presence: without esophagitis Qualified Code(s): K21.9 - Gastro-esophageal reflux disease without esophagitis Plan to address problem: On PPIs (6) Overactive bladder Current Visit: Yes Status: Chronic Plan to address problem: On Flomax (7) DVT prophylaxis Current Visit: Yes Status: Acute Plan to address problem: SCDs and GI prophylaxis (8) Advance care planning Current Visit: Yes Status: Acute Plan to address problem: Disease education conducted, care plan discussed, diagnosis discussed and prognosis discussed. Patient is full code. Patient acknowledged understanding with care plan. +30 minutes.
[2021-11-22 12:58] LABS: Hemoglobin 8.1 gm/dl (11.8-15.2)
[2021-11-22] MEDS: MORPHINE 2 MG/1 ML INJ IV PRN ×2 (13:45→17:46)
[2021-11-22] MEDS ORDERED: METOCLOPRAMIDE 10 MG/2 ML INJ IV PRN (18:30)
[2021-11-22] MEDS ORDERED: oxyCODONE /ACETAMINOPHEN 5-325MG TAB PO PRN (18:30)
[2021-11-22] MEDS: HYDROmorphone 0.5 MG/0.5 ML INJ IV PRN (19:18)
[2021-11-22] MEDS: SODIUM CHLORIDE 0.9% IRR 500 ML BOTTLE IR PRN ×2 (19:35→21:06)
[2021-11-22] MEDS ORDERED: SODIUM CHLORIDE 0.9% IRR 1,000 ML BOTTLE IR PRN (19:39)
[2021-11-22] MEDS: D5W/0.9% NACL 1,000 ML IV SCH (21:34)
[2021-11-22] MEDS: FAMOTIDINE 20 MG/2 ML INJ IV SCH (21:34)
[2021-11-23 05:11] LABS: Basophils % (Auto) 0.1 % (0.0-1.8); Eosinophils % (Auto) 0.2 % (0.0-4.3); Lymphocytes # (Auto) 0.8 K/mm3 (1.2-5.4); Lymphocytes % (Auto) 6.8 % (13.4-35.0); Mean Corpuscular HGB Conc 32 % (32-34); Mean Corpuscular Volume 95 fl (84-94); Monocytes # (Auto) 0.9 K/mm3 (0.0-0.8); Platelet Count 152 K/mm3 (140-440); Red Cell Distribution Width 15.4 % (13.2-15.2)
[2021-11-23 05:14] LABS: Hematocrit 18.9 % (35.5-45.6)
[2021-11-23 05:32] LABS: Albumin 3.1 g/dL (3.9-5); Calcium 7.9 mg/dL (8.4-10.2)
[2021-11-23] MEDS: D5W/0.9% NACL 1,000 ML IV SCH (05:48)
[2021-11-23] MEDS ORDERED: METOCLOPRAMIDE 10 MG/2 ML INJ IV PRN (08:00)
[2021-11-23] MEDS ORDERED: SODIUM CHLORIDE 0.9% 500 ML 500 ML IV ONE (09:00)
[2021-11-23] MEDS ORDERED: LIDOCAINE 2% UROJECT 10 ML JELLY ONE (09:16)
[2021-11-23] MEDS: allopurinoL 100 MG TAB PO SCH (09:41)
[2021-11-23] MEDS: SODIUM BICARBONATE 650 MG TAB PO SCH ×2 (09:41→21:19)
[2021-11-23] MEDS: TAMSULOSIN 0.4 MG CAP PO SCH (09:41)
[2021-11-23] MEDS: FERROUS SULFATE 325 MG TAB PO SCH (09:41)
[2021-11-23] MEDS: carvediloL 6.25 MG TAB PO SCH ×2 (09:42→23:19)
[2021-11-23] MEDS: ASCORBIC ACID 500 MG TAB PO SCH ×2 (09:42→21:20)
[2021-11-23] MEDS: FAMOTIDINE 20 MG/2 ML INJ IV SCH (09:42)
[2021-11-23] MEDS: FOLIC ACID 1 MG TAB PO SCH (09:42)
[2021-11-23] MEDS: MEGESTROL 40 MG TAB PO SCH ×4 (09:46→21:20)
[2021-11-23] MEDS: PANTOPRAZOLE 20 MG TAB PO SCH (09:46)
[2021-11-23] MEDS ORDERED: NON-FORMULARY EACH (Ferrous Sulfate [Ferrous Sulfate 324 Mg] 324 MG Tablet.Dr) PO SCH (10:00)
[2021-11-23] MEDS ORDERED: amLODIPine 5 MG TAB PO SCH (10:00)
--- NOTE | 2021-11-23 11:55 | Consultation ---
History of Present Illness - Reason for Consult Consult date: 11/23/21 chronic renal failure - History of Present Illness This is a 76 year old male who presents to the hospital with a chief complaint of blood in urine and diarrhea x 2 days. Patient has history of Prostate cancer and has had Prostatectomy in 1991. Pertinent labs on admission revealed an elevated serum creatinine of 3.9, BUN level of 84. Patient has history of CKD stage 4 with last serum creatinine 3.[address] Perez his [facility] in [facility], Hypertension, Hyperlipidemia and Prostate cancer, s/p prostatectomy. We are being consulted for management of this patient's CKD. Past History Past Medical History: anemia, hypertension, renal failure, other (CKD stage 4, Prostate cancer-s/p prostatectomy in 1991) Past Surgical History: Other (Prostatectomy in 1991) Social history: no significant social history Family history: no significant family history Medications and Allergies Allergies Allergy/AdvReac Type Severity Reaction Status Date / Time No Known Allergies Allergy Verified 11/21/21 15:22 Home Medications Medication Instructions Recorded Confirmed Last Taken Type Ascorbic Acid [Vitamin C with Jenn 500 mg PO BID 11/22/21 11/22/21 11/21/21 History Hips] 0900 Atorvastatin Calcium 40 mg PO QAM 11/22/21 11/22/21 11/21/21 History Bumetanide [Bumetanide 2 mg tab] 2 mg DAILY 11/22/21 11/22/21 11/22/21 History Cyanocobalamin [Vitamin B-12] 1,000 mcg PO DAILY 11/22/21 11/22/21 11/21/21 History Donepezil HCl 10 mg HS 11/22/21 11/22/21 11/21/21 History Ferrous Sulfate [Ferrous Sulfate 324 mg PO DAILY 11/22/21 11/22/21 11/21/21 History 324 MG] Folic Acid [Folvite] 0.5 mg PO QDAY 11/22/21 11/22/21 11/21/21 History Megestrol Acetate 40 mg PO QID 11/22/21 11/22/21 11/21/21 History Pantoprazole Sodium 20 mg PO DAILY 11/22/21 11/22/21 11/21/21 History Sodium Bicarbonate 650 mg PO BID 11/22/21 11/22/21 11/21/21 History Tamsulosin [Flomax] 0.4 mg DAILY 11/22/21 11/22/21 11/21/21 History 899 allopurinoL [Zyloprim] 100 mg PO QDAY 11/22/21 11/22/21 11/21/21 History amLODIPine 5 mg PO DAILY 11/22/21 11/22/21 11/21/21 History carvediloL [Coreg] 6.25 mg PO BID 11/22/21 11/22/21 11/21/21 History Active Meds: Active Medications Acetaminophen (Acetaminophen 325 Mg Tab) 650 mg PO Q4H PRN PRN Reason: Pain MILD(1-3)/Fever >100.5/CALVILLO Allopurinol (Allopurinol 100 Mg Tab) 100 mg PO QDAY [facility] Last Admin: 11/23/21 09:41 Dose: 100 mg Ascorbic Acid (Ascorbic Acid 500 Mg Tab) 500 mg PO BID [facility] Last Admin: 11/23/21 09:42 Dose: 500 mg Carvedilol (Carvedilol 6.25 Mg Tab) 6.25 mg PO BID [facility] Last Admin: 11/23/21 09:42 Dose: 6.25 mg Ferrous Sulfate (Ferrous Sulfate 325 Mg Tab) 325 mg PO DAILY [facility] Last Admin: 11/23/21 09:41 Dose: 325 mg Folic Acid (Folic Acid 1 Mg Tab) 0.5 mg PO QDAY [facility] Last Admin: 11/23/21 09:42 Dose: 0.5 mg Hydromorphone HCl (Hydromorphone 0.5 Mg/0.5 Ml Inj) 1 mg IV Q3H PRN PRN Reason: Pain , Severe (7-10) Last Admin: 11/22/21 19:18 Dose: 1 mg Dextrose/Sodium Chloride (D5ns) 1,000 mls @ 100 mls/hr IV DIRECT [facility] Last Admin: 11/23/21 05:48 Dose: 100 mls/hr Megestrol Acetate (Megestrol 40 Mg Tab) 40 mg PO QID [facility] Last Admin: 11/23/21 09:46 Dose: 40 mg Metoclopramide HCl (Metoclopramide 10 Mg/2 Ml Inj) 5 mg IV Q6H PRN PRN Reason: Nausea And Vomiting Morphine Sulfate (Morphine 2 Mg/1 Ml Inj) 2 mg IV Q4H PRN PRN Reason: Pain, Moderate (4-6) Last Admin: 11/22/21 17:46 Dose: 2 mg Ondansetron HCl (Ondansetron 4 Mg/2 Ml Inj) 4 mg IV Q3H PRN PRN Reason: Nausea And Vomiting Oxycodone/Acetaminophen (Oxycodone /Acetaminophen 5-325mg Tab) 1 tab PO Q6H PRN PRN Reason: Pain, Moderate (4-6) Pantoprazole Sodium (Pantoprazole 20 Mg Tab) 20 mg PO QDAC [facility] Last Admin: 11/23/21 09:46 Dose: 20 mg Sodium Bicarbonate (Sodium Bicarbonate 650 Mg Tab) 650 mg PO BID [facility] Last Admin: 11/23/21 09:41 Dose: 650 mg Sodium Chloride (Sodium Chloride 0.9% Irrig Soln 2000 Ml) 2,000 ml IR DIRECT PRN PRN Reason: IRRIGATION Last Admin: 11/22/21 06:10 Dose: 2,000 ml Sodium Chloride (Sodium Chloride 0.9% 10 Ml Flush Syringe) 10 ml IV BID [facility] Last Admin: 11/22/21 23:02 Dose: Not Given Sodium Chloride (Sodium Chloride 0.9% 10 Ml Flush Syringe) 10 ml IV PRN PRN PRN Reason: LINE FLUSH Sodium Chloride (Sodium Chloride 0.9% Irr 500 Ml Bottle) 500 ml IR DIRECT PRN PRN Reason: bladder irrigation Last Admin: 11/22/21 21:06 Dose: 500 ml Tamsulosin HCl (Tamsulosin 0.4 Mg Cap) 0.4 mg PO DAILY [facility] Last Admin: 11/23/21 09:41 Dose: 0.4 mg Review of Systems Constitutional: fatigue, no weight loss, no weight gain, no fever, no chills Ears, nose, mouth and throat: no ear discharge, no tinnitis, no decreased hearing, no nose pain Cardiovascular: no chest pain, no orthopnea, no palpitations, no rapid/irregular heart beat, no edema Respiratory: no cough, no cough with sputum, no excessive sputum, no hemoptysis Gastrointestinal: no abdominal pain, no nausea, no vomiting, no diarrhea, no con stipation Genitourinary Male: other (blood in urine), no flank pain, no discharge, no urinary frequency Musculoskeletal: no neck stiffness, no neck pain, no shooting arm pain, no arm numbness/tingling, no low back pain Integumentary: no rash, no pruritis, no redness, no sores, no wounds Neurological: no head injury, no transient paralysis, no paralysis, no weakness, no parathesias, no numbness, no tingling Psychiatric: no anxiety, no memory loss, no change in sleep habits, no sleep disturbances, no insomnia, no hypersomnia Endocrine: no cold intolerance, no heat intolerance, no polyphagia, no excessive thirst, no polydipsia Exam - Vital Signs Vital signs: Vital Signs Temp Pulse Resp BP Pulse Ox 99.7 F H 85 17 154/81 100 11/21/21 15:19 11/21/21 15:19 11/21/21 15:19 11/21/21 15:19 11/21/21 15:19 - General Appearance General appearance: well-developed, appears stated age EENT: ATNC, PERRL, hearing intact, vision intact Neck: Present: neck supple, trachea midline Respiratory: Decreased Breath Sounds Heart: S1S2 Gastrointestinal: Present: normoactive bowel sounds Integumentary: warm and dry Neurologic: alert and oriented x3 Musculoskeletal: Present: other (mild edema to legs) Psychiatric: cooperative Results - Lab Results 11/23/21 04:29 11/23/21 04:29 Most recent lab results Calcium 7.9 mg/dL (8.4-10.2) L D 11/23/21 04:29 Assessment and Plan Assessment: Acute Renal Failure on CKD stage 4 Hematuria Acidosis Hypertension Anemia Plan: Renal labs reviewed. Serum creatinine 4.0 today, yesterday's was 3.8 Follows outpatiently with [facility]. Purdy in [facility]. Serum creatinine at his recent office visit was 3.[address] of Abdomen shows- Large amount of hemorrhage within the bladder with mild right hydronephrosis On Alexander drip. Urology consulted On D5NS@ 100 ml/hr Acidosis-Continue on Sodium bicarbonate 650 mg po BID Anemia-transfuse as needed Obtain urine lytes, protein and eosinophils Obtain daily weights Monitor I/O's daily Avoid nephrotoxic agents Continue to monitor renal function closely No acute indication for TIE LOADER Plan of care reviewed by Dr. Colbert
--- NOTE | 2021-11-23 12:08 | Progress Note ---
Assessment and Plan old clots irrrigated out consult dicted hgb 6 needs cysto from [facility] post xrt for cap ?? post rrp cath draining r hydro r/o bladder tumor cysto saturday give 3 ubnits today Subjective Date of service: 11/23/21 Objective - Constitutional Vitals: Vital Signs - 12hr 11/23/21 03:02 O2 Sat by Pulse 99 Oximetry General appearance: Present: no acute distress - Neck Neck: supple Extremities: no ischemia - Gastrointestinal General gastrointestinal: Present: soft, non-tender - Genitourinary Male genitourinary: normal (cath draining well ) - Labs CBC & Chem 7: 11/23/21 04:29 11/23/21 04:29 Labs: Abnormal lab results 11/22/21 11/22/21 11/23/21 Range/Units 12:22 14:00 04:29 WBC 11.1 H (4.5-11.0) K/mm3 RBC 2.00 L (3.65-5.03) M/mm3 Hgb 8.1 L 6.0 L (11.8-15.2) gm/dl Hct 25.0 L 18.9 L* D (35.5-45.6) % MCV 95 H (84-94) fl RDW 15.4 H (13.2-15.2) % Lymph % (Auto) 6.8 L (13.4-35.0) % Gila % (Auto) 8.0 H (0.0-7.3) % Lymph # (Auto) 0.8 L (1.2-5.4) K/mm3 [place]ila # (Auto) 0.9 H (0.0-0.8) K/mm3 Seg Neutrophils % 84.9 H (40.0-70.0) % Seg Neutrophils # 9.4 H (1.8-7.7) K/mm3 Chloride (98-107) mmol/L Carbon Dioxide (22-30) mmol/L BUN (9-20) mg/dL Creatinine (0.8-1.3) mg/dL Glucose (75-100) mg/dL Calcium (8.4-10.2) mg/dL Total Protein (6.3-8.2) g/dL Albumin (3.9-5) g/dL Crossmatch See Detail 11/23/21 Range/Units 04:29 WBC (4.5-11.0) K/mm3 RBC (3.65-5.03) M/mm3 Hgb (11.8-15.2) gm/dl Hct (35.5-45.6) % MCV (84-94) fl RDW (13.2-15.2) % Lymph % (Auto) (13.4-35.0) % Gila % (Auto) (0.0-7.3) % Lymph # (Auto) (1.2-5.4) K/mm3 Gila # (Auto) (0.0-0.8) K/mm3 Seg Neutrophils % (40.0-70.0) % Seg Neutrophils # (1.8-7.7) K/mm3 Chloride 112.9 H (98-107) mmol/L Carbon Dioxide 20 L (22-30) mmol/L BUN 85 H (9-20) mg/dL Creatinine 4.0 H (0.8-1.3) mg/dL Glucose 137 H (75-100) mg/dL Calcium 7.9 L D (8.4-10.2) mg/dL Total Protein 5.0 L D (6.3-8.2) g/dL Albumin 3.1 L (3.9-5) g/dL Crossmatch Medications & Allergies - Medications Allergies/Adverse Reactions: Allergies No Known Allergies Allergy (Verified 11/21/21 15:22) Home Medications: Home Medications Medication Instructions Recorded Confirmed Last Taken Type Ascorbic Acid [Vitamin C with Jenn 500 mg PO BID 11/22/21 11/22/21 11/21/21 History Hips] 0900 Atorvastatin Calcium 40 mg PO QAM 11/22/21 11/22/21 11/21/21 History Bumetanide [Bumetanide 2 mg tab] 2 mg DAILY 11/22/21 11/22/21 11/22/21 History Cyanocobalamin [Vitamin B-12] 1,000 mcg PO DAILY 11/22/21 11/22/21 11/21/21 History Donepezil HCl 10 mg HS 11/22/21 11/22/21 11/21/21 History Ferrous Sulfate [Ferrous Sulfate 324 mg PO DAILY 11/22/21 11/22/21 11/21/21 History 324 MG] Folic Acid [Folvite] 0.5 mg PO QDAY 11/22/21 11/22/21 11/21/21 History Megestrol Acetate 40 mg PO QID 11/22/21 11/22/21 11/21/21 History Pantoprazole Sodium 20 mg PO DAILY 11/22/21 11/22/21 11/21/21 History Sodium Bicarbonate 650 mg PO BID 11/22/21 11/22/21 11/21/21 History Tamsulosin [Flomax] 0.4 mg DAILY 11/22/21 11/22/21 11/21/21 History 09 allopurinoL [Zyloprim] 100 mg PO QDAY 11/22/21 11/22/21 11/21/21 History amLODIPine 5 mg PO DAILY 11/22/21 11/22/21 11/21/21 History carvediloL [Coreg] 6.25 mg PO BID 11/22/21 11/22/21 11/21/21 History Active Medications: Generic Name Dose Route Start Last Admin Trade Name Johnnyq PRN Reason Stop Dose Admin Acetaminophen 650 mg 11/22/21 18:30 Acetaminophen 325 Mg Tab PO Q4H PRN Pain MILD(1-3)/Fever >100.5/CALVILLO Allopurinol 100 mg 11/23/21 10:00 11/23/21 09:41 Allopurinol 100 Mg Tab PO 100 mg QDAY [facility]TH[facility] Administration Ascorbic Acid 500 mg 11/23/21 10:00 11/23/21 09:42 Ascorbic Acid 500 Mg Tab PO 500 mg BID MARTHA Administration Carvedilol 6.25 mg 11/23/21 10:00 11/23/21 09:42 Carvedilol 6.25 Mg Tab PO 6.25 mg BID MARTHA Administration Ferrous Sulfate 325 mg 11/23/21 10:00 11/23/21 09:41 Ferrous Sulfate 325 Mg Tab PO 325 mg DAILY [facility]THA Administration Folic Acid 0.5 mg 11/23/21 10:00 11/23/21 09:42 Folic Acid 1 Mg Tab PO 0.5 mg QDAY [facility]THA Administration Hydromorphone HCl 1 mg 11/22/21 18:30 11/22/21 19:18 Hydromorphone 0.5 Mg/0.5 Ml Inj IV 1 mg Q3H PRN Administration Pain , Severe (7-10) Dextrose/Sodium Chloride 1,000 mls @ 100 mls/hr 11/22/21 19:00 11/23/21 05:48 D5ns IV 100 mls/hr DIRECT [facility]THA Administration Megestrol Acetate 40 mg 11/23/21 10:00 11/23/21 09:46 Megestrol 40 Mg Tab PO 40 mg QID [facility] Administration Metoclopramide HCl 5 mg 11/23/21 08:00 Metoclopramide 10 Mg/2 Ml Inj IV Q6H PRN Nausea And Vomiting Morphine Sulfate 2 mg 11/22/21 11:46 11/22/21 17:46 Morphine 2 Mg/1 Ml Inj IV 2 mg Q4H PRN Administration Pain, Moderate (4-6) Ondansetron HCl 4 mg 11/22/21 18:30 Ondansetron 4 Mg/2 Ml Inj IV Q3H PRN Nausea And Vomiting Oxycodone/Acetaminophen 1 tab 11/22/21 18:30 Oxycodone /Acetaminophen 5-325mg Tab PO Q6H PRN Pain, Moderate (4-6) Pantoprazole Sodium 20 mg 11/23/21 08:00 11/23/21 09:46 Pantoprazole 20 Mg Tab PO 20 mg QDAC MARTHA Administration Sodium Bicarbonate 650 mg 11/23/21 10:00 11/23/21 09:41 Sodium Bicarbonate 650 Mg Tab PO 650 mg BID [facility]THA Administration Sodium Chloride 2,000 ml 11/22/21 05:00 11/22/21 06:10 Sodium Chloride 0.9% Irrig Soln 2000 Ml IR 2,000 ml DIRECT PRN Administration IRRIGATION Sodium Chloride 10 ml 11/22/21 22:00 11/22/21 23:02 Sodium Chloride 0.9% 10 Ml Flush Syringe IV Not Given BID MARTHA Sodium Chloride 10 ml 11/22/21 18:30 Sodium Chloride 0.9% 10 Ml Flush Syringe IV PRN PRN LINE FLUSH Sodium Chloride 500 ml 11/22/21 19:22 11/22/21 21:06 Sodium Chloride 0.9% Irr 500 Ml Bottle IR 500 ml DIRECT PRN Administration bladder irrigation Tamsulosin HCl 0.4 mg 11/23/21 10:00 11/23/21 09:41 Tamsulosin 0.4 Mg Cap PO 0.4 mg DAILY MARTHA Administration
--- NOTE | 2021-11-23 14:41 | Anesthesia Consultation ---
Anesthesia Consult and Med Hx Date of service: 11/24/21 - Airway Anesthetic Teeth Evaluation: Chipped ROM Head & Neck: Adequate Mental/Hyoid Distance: Adequate Mallampati Class: Class II Intubation Access Assessment: Possibly Difficult - Pulmonary Exam CTA: Yes - Cardiac Exam Cardiac Exam: RRR - Pre-Operative Health Status ASA Pre-Surgery Classification: ASA3 Proposed Anesthetic Plan: General - Pulmonary Hx Smoking: Yes (2 packs every 3 days for >20 years) Hx Respiratory Symptoms: No - Cardiovascular System Hx Hypertension: Yes Hx Heart Attack/AMI: No Hx Cardia Arrhythmia: No - Central Nervous System Hx Neuromuscular Disorder: No - Gastrointestinal Hx Gastroesophageal Reflux Disease: Yes (relieved with OTC medication) - Endocrine Hx Renal Disease: Yes (kidney stones; hematuria) Hx Liver Disease: No Hx Insulin Dependent Diabetes: No Hx Non-Insulin Dependent Diabetes: No Hx Thyroid Disease: No - Hematic Hx Anemia: Yes (hgb 6; scheduled for transfusion with 2 units today per Julia SOARES) - Other Systems Hx Alcohol Use: No Hx Cancer: Yes (Prostate cancer s/p prostactectomy 1991) - Additional Comments Anesthesia Medical History Comments: No GAC. No FHAC.
[2021-11-23] MEDS: SODIUM CHLORIDE 0.9% 500 ML 500 ML IV SCH ×2 (15:58→20:00)
--- NOTE | 2021-11-23 16:05 | Progress Note ---
Assessment and Plan Assessment and plan: #Roseline hematuria #Acute blood loss anemia Hemoglobin 9.1-->8.0-->6.0. Transfusing 3 units packed RBCs Urology consulted; appreciate recs Continue Alexander drip for bladder irrigation. Trend H&H every 8 hours. Pending cystoscopy tomorrow with urology to identify source of bleeding. Patient made n.p.o. at midnight. #SRINATH on CKD stage IV Creatinine 4.0 (baseline 3.4) Continue fluid resuscitation and encouraging p.o. intake. Renally dose meds and avoid nephrotoxic drugs. Nephrology consulted; pending recs. Continue to monitor with daily BMP #Hypertension #Hyperlipidemia - home medications: Coreg 6.25 mg twice daily, amlodipine 5 mg daily, Bumex 2 mg daily - current medications: Coreg 6.25 mg twice daily - SBP goal <160 and DBP goal <90 while inpatient - continue to monitor #GERD Continue home pantoprazole 20 mg daily #Overactive bladder Continue home Flomax 0.4 mg daily #Gout Currently holding home allopurinol 100 mg daily #Mild protein caloric malnutrition Albumin 3.1 Starting dietary supplementation. Critical Care Billing: The high probability of a clinically significant, sudden or life threatening deterioration of the [urologic and hematology] system(s) required my full and direct attention, intervention and personal management. The aggregate critical care time was [60] minutes. This time is in addition to time spent performing reported procedures but includes the following: [x] Data Review and interpretation [x] Patient assessment and monitoring of vital signs [x] Documentation [x] Medication orders and management Disposition Plan: Continue medical management Total Time Spent with Patient (Minutes): 45 minutes History Interval history: Patient continued to have roseline hematuria with a decrease in his hemoglobin from 8 to 6.0. Hospitalist Physical - Constitutional Vitals: Temp Pulse Resp BP Pulse Ox 97.6 F 85 17 112/53 98 11/23/21 15:41 11/23/21 15:41 11/23/21 15:52 11/23/21 15:41 11/23/21 15:52 General appearance: Present: no acute distress, well-nourished, other (Roseline hem aturia is visualized in his Flores catheter) - EENT Eyes: Present: PERRL, EOM intact ENT: hearing intact, clear oral mucosa, dentition normal - Neck Neck: Present: supple, normal ROM - Respiratory Respiratory effort: normal Respiratory: bilateral: CTA - Cardiovascular Rhythm: regular Heart Sounds: Present: S1 & S2 - Extremities Extremities: no ischemia, pulses intact, pulses symmetrical, No edema, normal temperature, normal color Peripheral Pulses: within normal limits - Abdominal General gastrointestinal: soft, non-tender, non-distended, normal bowel sounds - Integumentary Integumentary: Present: clear, warm, dry - Psychiatric Psychiatric: appropriate mood/affect, intact judgment & insight, memory intact, cooperative - Neurologic Neurologic: CNII-XII intact, moves all extremities - Allied Health Allied health notes reviewed: nursing Results - Labs CBC & Chem 7: 11/23/21 04:29 11/23/21 04:29 Labs: Laboratory Last Values WBC 11.1 K/mm3 (4.5-11.0) H 11/23/21 04:29 RBC 2.00 M/mm3 (3.65-5.03) L 11/23/21 04:29 Hgb 6.0 gm/dl (11.8-15.2) L 11/23/21 04:29 Hct 18.9 % (35.5-45.6) L* D 11/23/21 04:29 MCV 95 fl (84-94) H 11/23/21 04:29 MCH 30 pg (28-32) 11/23/21 04:29 MCHC 32 % (32-34) 11/23/21 04:29 RDW 15.4 % (13.2-15.2) H 11/23/21 04:29 Plt Count 152 K/mm3 (140-440) 11/23/21 04:29 Lymph % (Auto) 6.8 % (13.4-35.0) L 11/23/21 04:29 [place] % (Auto) 8.0 % (0.0-7.3) H 11/23/21 04:29 Eos % (Auto) 0.2 % (0.0-4.3) 11/23/21 04:29 Baso % (Auto) 0.1 % (0.0-1.8) 11/23/21 04:29 Lymph # (Auto) 0.8 K/mm3 (1.2-5.4) L 11/23/21 04:29 [place] # (Auto) 0.9 K/mm3 (0.0-0.8) H 11/23/21 04:29 Eos # (Auto) 0.0 K/mm3 (0.0-0.4) 11/23/21 04:29 Baso # (Auto) 0.0 K/mm3 (0.0-0.1) 11/23/21 04:29 Seg Neutrophils % 84.9 % (40.0-70.0) H 11/23/21 04:29 Seg Neutrophils # 9.4 K/mm3 (1.8-7.7) H 11/23/21 04:29 PT 14.0 Sec. (12.2-14.9) 11/22/21 02:49 INR 0.97 (0.87-1.13) 11/22/21 02:49 APTT 28.3 Sec. (24.2-36.6) 11/22/21 02:49 Sodium 142 mmol/L (137-145) 11/23/21 04:29 Potassium 4.7 mmol/L (3.6-5.0) 11/23/21 04:29 Chloride 112.9 mmol/L (98-107) H 11/23/21 04:29 Carbon Dioxide 20 mmol/L (22-30) L 11/23/21 04:29 Anion Gap 14 mmol/L 11/23/21 04:29 BUN 85 mg/dL (9-20) H 11/23/21 04:29 Creatinine 4.0 mg/dL (0.8-1.3) H 11/23/21 04:29 Estimated GFR 18 ml/min 11/23/21 04:29 BUN/Creatinine Ratio 21 % 11/23/21 04:29 Glucose 137 mg/dL (75-100) H 11/23/21 04:29 Calcium 7.9 mg/dL (8.4-10.2) L D 11/23/21 04:29 Total Bilirubin 0.30 mg/dL (0.1-1.2) 11/23/21 04:29 Direct Bilirubin < 0.2 mg/dL (0-0.2) 11/22/21 02:49 Indirect Bilirubin 0.1 mg/dL 11/22/21 02:49 AST 15 units/L (5-40) 11/23/21 04:29 ALT 12 units/L (7-56) 11/23/21 04:29 Alkaline Phosphatase 46 units/L (35-129) 11/23/21 04:29 Total Protein 5.0 g/dL (6.3-8.2) L D 11/23/21 04:29 Albumin 3.1 g/dL (3.9-5) L 11/23/21 04:29 Albumin/Globulin Ratio 1.6 % 11/23/21 04:29 Lipase 98 units/L (13-60) H 11/22/21 02:49 Urine Color Red (Yellow) 11/22/21 03:53 Urine Turbidity Turbid (Clear) 11/22/21 03:53 Specific [place] (Man) 1.020 (1.003-1.030) 11/22/21 03:53 Ur Protein (Man) >500 mg/dL (Negative) 11/22/21 03:53 Ur Ketones (Man) Negative (Negative) 11/22/21 03:53 Ur Nitrite (Man) Negative (Negative) 11/22/21 03:53 Urine Bilirubin (Man) Negative (Negative) 11/22/21 03:53 Urine Ictotest Not Reportable 11/22/21 03:53 Leukocyte Esterase (Man) Small (Negative) 11/22/21 03:53 Urine WBC (Auto) 52.0 /HPF (0.0-6.0) H 11/22/21 03:53 Urine RBC (Auto) > 182.0 /HPF (0.0-6.0) 11/22/21 03:53 Urine RBC (Manual) 3+ (Negative) 11/22/21 03:53 Blood Type A POSITIVE 11/22/21 14:00 Antibody Screen Negative 11/22/21 14:00 Crossmatch See Detail 11/22/21 14:00 Microbiology: Microbiology 11/22/21 03:53 Urine,Clean Catch Urine Culture - Preliminary NO GROWTH AFTER 24 HOURS Flores/IV: Voiding Method Indwelling Catheter Active Medications - Current Medications Current Medications: Generic Name Dose Route Start Last Admin Trade Name Freq PRN Reason Stop Dose Admin Acetaminophen 650 mg 11/22/21 18:30 Acetaminophen 325 Mg Tab PO Q4H PRN Pain MILD(1-3)/Fever >100.5/CALVILLO Allopurinol 100 mg 11/23/21 10:00 11/23/21 09:41 Allopurinol 100 Mg Tab PO 100 mg QDAY MARTHA Administration Ascorbic Acid 500 mg 11/23/21 10:00 11/23/21 09:42 Ascorbic Acid 500 Mg Tab PO 500 mg BID MARTHA Administration Carvedilol 6.25 mg 11/23/21 10:00 11/23/21 09:42 Carvedilol 6.25 Mg Tab PO 6.25 mg BID MARTHA Administration Ferrous Sulfate 325 mg 11/23/21 10:00 11/23/21 09:41 Ferrous Sulfate 325 Mg Tab PO 325 mg DAILY MARTHA Administration Folic Acid 0.5 mg 11/23/21 10:00 11/23/21 09:42 Folic Acid 1 Mg Tab PO 0.5 mg QDAY MARTHA Administration Hydromorphone HCl 1 mg 11/22/21 18:30 11/22/21 19:18 Hydromorphone 0.5 Mg/0.5 Ml Inj IV 1 mg Q3H PRN Administration Pain , Severe (7-10) Dextrose/Sodium Chloride 1,000 mls @ 100 mls/hr 11/22/21 19:00 11/23/21 05:48 D5ns IV 100 mls/hr DIRECT MARTHA Administration Sodium Chloride 500 mls @ 0 mls/hr 11/23/21 12:30 Nacl 0.9% 500 Ml IV 11/23/21 22:30 ONCE@1230 MARTHA As Directed Megestrol Acetate 40 mg 11/23/21 10:00 11/23/21 14:45 Megestrol 40 Mg Tab PO 40 mg QID MARTHA Administration Metoclopramide HCl 5 mg 11/23/21 08:00 Metoclopramide 10 Mg/2 Ml Inj IV Q6H PRN Nausea And Vomiting Morphine Sulfate 2 mg 11/22/21 11:46 11/22/21 17:46 Morphine 2 Mg/1 Ml Inj IV 2 mg Q4H PRN Administration Pain, Moderate (4-6) Ondansetron HCl 4 mg 11/22/21 18:30 Ondansetron 4 Mg/2 Ml Inj IV Q3H PRN Nausea And Vomiting Oxycodone/Acetaminophen 1 tab 11/22/21 18:30 Oxycodone /Acetaminophen 5-325mg Tab PO Q6H PRN Pain, Moderate (4-6) Pantoprazole Sodium 20 mg 11/23/21 08:00 11/23/21 09:46 Pantoprazole 20 Mg Tab PO 20 mg QDAC MARTHA Administration Sodium Bicarbonate 650 mg 11/23/21 10:00 11/23/21 09:41 Sodium Bicarbonate 650 Mg Tab PO 650 mg BID MARTHA Administration Sodium Chloride 2,000 ml 11/22/21 05:00 11/22/21 06:10 Sodium Chloride 0.9% Irrig Soln 2000 Ml IR 2,000 ml DIRECT PRN Administration IRRIGATION Sodium Chloride 10 ml 11/22/21 22:00 11/23/21 14:48 Sodium Chloride 0.9% 10 Ml Flush Syringe IV 10 ml BID MARTHA Administration Sodium Chloride 10 ml 11/22/21 18:30 Sodium Chloride 0.9% 10 Ml Flush Syringe IV PRN PRN LINE FLUSH Sodium Chloride 500 ml 11/22/21 19:22 11/22/21 21:06 Sodium Chloride 0.9% Irr 500 Ml Bottle IR 500 ml DIRECT PRN Administration bladder irrigation Tamsulosin HCl 0.4 mg 11/23/21 10:00 11/23/21 09:41 Tamsulosin 0.4 Mg Cap PO 0.4 mg DAILY MARTHA Administration
[2021-11-23 18:58] LABS: Creatinine,Urine 78.6 mg/dL (0.1-20.0)
--- NOTE | 2021-11-24 05:05 | Consultation ---
DATE OF CONSULTATION: 11/23/2021 HISTORY OF PRESENT ILLNESS: The patient is a 76-year-old gentleman who has a history of prostate cancer. He says it was removed and he has had radiation as well. Catheter was placed. It sounds like it was in the urethra traumatically yesterday and had to be replaced in the bladder. It irrigates freely. I just irrigated him and got lots of clots. It cleared up and then it started bleeding again. His hemoglobin when he came in was at 9, it was 6 this morning. He has been followed in [place]. Apparently, he has had bleeding on and off. His INR is normal. He now presents for urological evaluation. PAST MEDICAL HISTORY: As mentioned above. He has chronic renal insufficiency with a creatinine of around 3. ALLERGIES: Negative. MEDICATIONS: He is on allopurinol, amlodipine, Coreg, iron and Bumex. REVIEW OF SYSTEMS: Erectile dysfunction. Some occasional loose stools. PHYSICAL EXAMINATION: GENERAL: He is awake. He is in no distress. ABDOMEN: Soft, nondistended. GENITALIA: Draining catheter. Mildly atrophic testis. IMPRESSION AND PLAN: Post-prostatectomy post-radiation with hematuria. CT scan of the abdomen and pelvis showed some right hydronephrosis and a complex left upper pole cyst. Minimal right hydro may be related to some bladder outlet or some of the clots, but this patient needs cystoscopy. Now that, I just got the results of the hemoglobin is 6, he will be kept n.p.o. past midnight and we will try to do this tomorrow. TID: [id number] RECEIPT: [id number] DELMAR/TESS/TOM
[2021-11-24 05:43] LABS: Hematocrit 26.5 % (35.5-45.6); Hemoglobin 9.1 gm/dl (11.8-15.2)
[2021-11-24 06:00] LABS: Calcium 8.2 mg/dL (8.4-10.2)
[2021-11-24] MEDS ORDERED: HYDROmorphone 1 MG/1 ML INJ ONE (07:15)
[2021-11-24] MEDS ORDERED: propofoL 200 MG/20 ML VIAL IV ONE (07:16)
[2021-11-24] MEDS ORDERED: LIDOCAINE MPF (2%) 20 MG/1 ML VIAL 5 ML ONE (07:16)
[2021-11-24] MEDS ORDERED: ceFAZolin 1 GM VIAL ONE ×2 (07:52)
[2021-11-24] MEDS ORDERED: ONDANSETRON 4 MG/2 ML INJ IV PRN (08:01)
[2021-11-24] MEDS ORDERED: HYDROmorphone 0.5 MG/0.5 ML INJ IV PRN ×2 (08:01)
--- NOTE | 2021-11-24 08:02 | Anesthesia Day of Surgery ---
Anesthesia Day of Surgery - Day of Surgery Patient Examined: Yes Patient H&P Reviewed: Yes Patient is NPO: Yes
[2021-11-24] MEDS ORDERED: WATER FOR IRRIG STERILE 2000 ML IR ONE (08:18)
--- NOTE | 2021-11-24 08:19 | Post Operative Note ---
Date of procedure: 11/24/21 Pre-op diagnosis: hematuria, hydronephrosis Post-op diagnosis: other (urethral trauma) Procedure: cysto, rpg, rt ureteroscopy , stent with short internal string, exchange baxter (20F) Anesthesia: GETA Estimated blood loss: none Condition: stable Disposition: PACU (home with bactrim & norco/ f/u with home gu ([facility]))
--- NOTE | 2021-11-24 08:21 | Event Note ---
Date: 11/24/21 home with baxter from gu standpoint f/u with home gu
--- NOTE | 2021-11-24 08:40 | Operative Report ---
DATE OF SURGERY: 11/24/2021 PREOPERATIVE DIAGNOSES: Gross hematuria, right hydronephrosis. POSTOPERATIVE DIAGNOSES: Gross hematuria, right hydronephrosis, urethral trauma. PROCEDURES PERFORMED: Cystoscopy, bilateral retrograde pyelograms, right ureteroscopy, double-J stent placement (6-Tuvaluan 22 cm with a short internal string), Flores catheter exchange (20-Tuvaluan Canby tip catheter). SURGEON: Adonis Machado MD ANESTHESIA: General. ESTIMATED BLOOD LOSS: Minimal. FLUIDS: Crystalloid. COMPLICATIONS: No complications. INDICATIONS: This patient is a 76-year-old gentleman presented to the Emergency Room with gross hematuria. CT of the abdomen and pelvis revealed some mild right hydronephrosis and possible cyst as well as a renal cyst on the left side, continued to have bleeding. In the hospital, Flores catheter was placed. Hemoglobin was 8, is transfused to a hemoglobin of 9 and he has a history of prostate cancer in the remote past. Discussed options, he agreed to proceed with surgical intervention. DESCRIPTION OF PROCEDURE: The patient was taken to the operative suite, placed in a supine position. After adequate general anesthesia, placed in the dorsal lithotomy position, prepped and draped in a sterile fashion. Pancystourethroscopy was performed with a 22-Tuvaluan Storz cystoscope. Distal urethra was normal. Obvious trauma to the bulbous urethra consistent with possibly a Flores balloon blown up in the urethra. Appears to have had a radical prostatectomy. There were clips in the pelvis, no obvious prostate could be appreciated. Bladder, no tumors or stones. There was lots of edema. Both ureteral orifices in normal position. Bilateral retrograde pyelograms were obtained with an 8-Tuvaluan Keith catheter and 8 mL of contrast. No filling defects or obstruction on the left. Right side was mildly dilated. A 0.035 Glidewires x 2 was placed. Ureteroscopy up to the renal pelvis was performed. No obvious stone; however, there was some distal edema. A 6-Tuvaluan 22 cm double-J stent with a short internal string was left indwelling. Wire was left in the bladder to allow passage of a 20-Tuvaluan Flores catheter, that we recommend it stays there at least 10 days. Rectal exam was benign. Bladder was drained. Cystogram was obtained to confirm adequate position. He was extubated and taken to recovery room, will go home, would return to his home urologist at the [facility] and go home on an antibiotic and pain pill. TID: [id number] RECEIPT: [id number] EJ/FRANDY
[2021-11-24] MEDS ORDERED: SODIUM CHLORIDE 0.9% 1000 ML 0 ML ONE (08:56)
--- NOTE | 2021-11-24 09:19 | Post Anesthesia Evaluation ---
- Post Anesthesia Evaluation Patient Participated: Yes Airway Patent: Yes Stable Respiratory Function: Yes Nausea/Vomiting: No Temp > 96.8F: Yes Pain Manageable: Yes Adequeate Hydration: Yes Anesthesia Complications: No Block Receding Appropriately: Not Applicable Patient on Ventilator: No
[2021-11-24] MEDS: D5W/0.9% NACL 1,000 ML IV SCH ×2 (09:46→22:15)
[2021-11-24] MEDS: MEGESTROL 40 MG TAB PO SCH ×4 (10:00→22:15)
--- NOTE | 2021-11-24 10:13 | Fluoroscopy Report ---
FLUOROSCOPY RETROGRADE UROGRAPHY INDICATION: HEMATURIAS. COMPARISON: None. IMPRESSION: 0.3 minutes of fluoroscopy time was provided by radiology during retrograde urography pe rformed by urology. 5 fluoroscopic images are presented. A right ureteral stent was placed which pamela ears in good position with adequate drainage of the right renal collecting system. Please correlate w ith the procedural report as needed. Signer Name: Jeremy Jane Jr, MD Signed: 11/24/2021 10:09 AM Workstation Name: [id number]
--- NOTE | 2021-11-24 11:13 | Progress Note ---
Assessment and Plan Assessment: Acute Renal Failure on CKD stage 4 Hematuria Acidosis Hypertension Anemia Plan: Renal labs reviewed. Serum creatinine remained stable at 4.0 today, yesterday's was 4.0, non-oliguric. Has known CKD. Serum creatinine at his recent outpatient [employer] office visit was 3.[address] of Abdomen shows-Large amount of hemorrhage within the bladder with mild right hydronephrosis S/P Cysto, RPG, Right Ureteroscopy , Stent with short internal string, exchange baxter (20F) done this morning on 11/24/21 by Urology. Urology recommends discharging with baxter catheter in place. On D5NS@ 100 ml/hr Acidosis-Continue on Sodium bicarbonate 650 mg po BID Anemia-transfuse as needed Urine lytes reviewed Obtain daily weights Monitor I/O's daily Avoid nephrotoxic agents No acute indication for [employer] Patient to f/u with his outpatient [employer] Dr. Perez upon discharge. Plan of care reviewed by Dr. Colbert Subjective Date of service: 11/24/21 Principal diagnosis: CKD, Hydronephrosis Interval history: Patient seen lying in bed, he complains of burning sensation when he urinates, had urology procedure done this morning Objective - Vital Signs Vital signs: Vital Signs - 12hr 11/23/21 11/23/21 11/23/21 23:19 23:40 23:43 Temperature 97.5 F L Pulse Rate 84 77 Respiratory 18 Rate Blood Pressure 124/60 123/61 123/61 O2 Sat by Pulse 100 Oximetry 11/24/21 11/24/21 11/24/21 03:00 05:35 08:05 Temperature 98.3 F Pulse Rate 70 Respiratory 18 18 Rate Blood Pressure 124/66 O2 Sat by Pulse 100 99 100 Oximetry 11/24/21 11/24/21 11/24/21 08:21 08:25 08:30 Temperature 98.0 F Pulse Rate 78 79 74 Respiratory 12 13 14 Rate Blood Pressure 132/69 134/71 132/75 O2 Sat by Pulse 100 99 99 Oximetry 11/24/21 11/24/21 11/24/21 08:35 08:50 09:05 Temperature 97.8 F Pulse Rate 74 69 69 Respiratory 13 12 14 Rate Blood Pressure 137/74 145/61 147/79 O2 Sat by Pulse 99 98 98 Oximetry 11/24/21 09:25 Temperature 98.7 F Pulse Rate 68 Respiratory 14 Rate Blood Pressure 157/73 O2 Sat by Pulse 97 Oximetry - General Appearance General appearance: well-developed, appears stated age EENT: ATNC, PERRL, hearing intact, vision intact Neck: no JVD, supple Respiratory: Present: Decreased Breath Sounds Cardiology: S1S2 Gastrointestinal: normoactive bowel sounds Integumentary: warm and dry Neurologic: alert and oriented x3 Musculoskeletal: other (mild edema) - Lab 11/24/21 05:03 11/24/21 05:03 Most recent lab results Calcium 8.2 mg/dL (8.4-10.2) L 11/24/21 05:03 Phosphorus 3.60 mg/dL (2.5-4.5) 11/24/21 05:03 Urine Creatinine 78.6 mg/dL (0.1-20.0) H 11/23/21 15:50 Urine Sodium 67 mmol/L 11/23/21 15:50 Urine Total Protein 158 mg/dL (5-11.8) H 11/23/21 15:50 Medications & Allergies - Medications Allergies/Adverse Reactions: Allergies No Known Allergies Allergy (Verified 11/21/21 15:22) Home Medications: Home Medications Medication Instructions Recorded Confirmed Last Taken Type Ascorbic Acid [Vitamin C with Jenn 500 mg PO BID 11/22/21 11/22/21 11/21/21 History Hips] 0900 Atorvastatin Calcium 40 mg PO QAM 11/22/21 11/22/21 11/21/21 History Bumetanide [Bumetanide 2 mg tab] 2 mg DAILY 11/22/21 11/22/21 11/22/21 History Cyanocobalamin [Vitamin B-12] 1,000 mcg PO DAILY 11/22/21 11/22/21 11/21/21 History Donepezil HCl 10 mg HS 11/22/21 11/22/21 11/21/21 History Ferrous Sulfate [Ferrous Sulfate 324 mg PO DAILY 11/22/21 11/22/21 11/21/21 History 324 MG] Folic Acid [Folvite] 0.5 mg PO QDAY 11/22/21 11/22/21 11/21/21 History Megestrol Acetate 40 mg PO QID 11/22/21 11/22/21 11/21/21 History Pantoprazole Sodium 20 mg PO DAILY 11/22/21 11/22/21 11/21/21 History Sodium Bicarbonate 650 mg PO BID 11/22/21 11/22/21 11/21/21 History Tamsulosin [Flomax] 0.4 mg DAILY 11/22/21 11/22/21 11/21/21 History 899 allopurinoL [Zyloprim] 100 mg PO QDAY 11/22/21 11/22/21 11/21/21 History amLODIPine 5 mg PO DAILY 11/22/21 11/22/21 11/21/21 History carvediloL [Coreg] 6.25 mg PO BID 11/22/21 11/22/21 11/21/21 History Active Medications: Generic Name Dose Route Start Last Admin Trade Name Freq PRN Reason Stop Dose Admin Acetaminophen 650 mg 11/22/21 18:30 Acetaminophen 325 Mg Tab PO Q4H PRN Pain MILD(1-3)/Fever >100.5/CALVILLO Allopurinol 100 mg 11/23/21 10:00 11/23/21 09:41 Allopurinol 100 Mg Tab PO 100 mg QDAY [facility] Administration Ascorbic Acid 500 mg 11/23/21 10:00 11/23/21 21:20 Ascorbic Acid 500 Mg Tab PO 500 mg BID MARTHA Administration Carvedilol 6.25 mg 11/23/21 10:00 11/23/21 23:19 Carvedilol 6.25 Mg Tab PO Not Given BID [facility] Ferrous Sulfate 325 mg 11/23/21 10:00 11/23/21 09:41 Ferrous Sulfate 325 Mg Tab PO 325 mg DAILY MARTHA Administration Folic Acid 0.5 mg 11/23/21 10:00 11/23/21 09:42 Folic Acid 1 Mg Tab PO 0.5 mg QDAY MARTHA Administration Hydromorphone HCl 1 mg 11/22/21 18:30 11/22/21 19:18 Hydromorphone 0.5 Mg/0.5 Ml Inj IV 1 mg Q3H PRN Administration Pain , Severe (7-10) Hydromorphone HCl 0.25 mg 11/24/21 08:01 Hydromorphone 0.5 Mg/0.5 Ml Inj IV 11/24/21 23:00 Q10MIN PRN Pain, Moderate (4-6) Hydromorphone HCl 0.5 mg 11/24/21 08:01 Hydromorphone 0.5 Mg/0.5 Ml Inj IV 11/24/21 23:00 Q10MIN PRN Pain , Severe (7-10) Dextrose/Sodium Chloride 1,000 mls @ 100 mls/hr 11/22/21 19:00 11/24/21 09:46 D5ns IV 100 mls/hr DIRECT MARTHA Administration Megestrol Acetate 40 mg 11/23/21 10:00 11/23/21 21:20 Megestrol 40 Mg Tab PO 40 mg QID MARTHA Administration Metoclopramide HCl 5 mg 11/23/21 08:00 Metoclopramide 10 Mg/2 Ml Inj IV Q6H PRN Nausea And Vomiting Morphine Sulfate 2 mg 11/22/21 11:46 11/22/21 17:46 Morphine 2 Mg/1 Ml Inj IV 2 mg Q4H PRN Administration Pain, Moderate (4-6) Ondansetron HCl 4 mg 11/22/21 18:30 Ondansetron 4 Mg/2 Ml Inj IV Q3H PRN Nausea And Vomiting Ondansetron HCl 4 mg 11/24/21 08:01 Ondansetron 4 Mg/2 Ml Inj IV 11/24/21 18:00 ONCE PRN Nausea And Vomiting Oxycodone/Acetaminophen 1 tab 11/22/21 18:30 11/23/21 21:20 Oxycodone /Acetaminophen 5-325mg Tab PO 1 tab Q6H PRN Administration Pain, Moderate (4-6) Pantoprazole Sodium 20 mg 11/23/21 08:00 11/23/21 09:46 Pantoprazole 20 Mg Tab PO 20 mg QDAC MARTHA Administration Sodium Bicarbonate 650 mg 11/23/21 10:00 11/23/21 21:19 Sodium Bicarbonate 650 Mg Tab PO 650 mg BID MARTHA Administration Sodium Chloride 2,000 ml 11/22/21 05:00 11/22/21 06:10 Sodium Chloride 0.9% Irrig Soln 2000 Ml IR 2,000 ml DIRECT PRN Administration IRRIGATION Sodium Chloride 10 ml 11/22/21 22:00 11/23/21 21:25 Sodium Chloride 0.9% 10 Ml Flush Syringe IV 10 ml BID MARTHA Administration Sodium Chloride 10 ml 11/22/21 18:30 Sodium Chloride 0.9% 10 Ml Flush Syringe IV PRN PRN LINE FLUSH Sodium Chloride 500 ml 11/22/21 19:22 11/22/21 21:06 Sodium Chloride 0.9% Irr 500 Ml Bottle IR 500 ml DIRECT PRN Administration bladder irrigation Tamsulosin HCl 0.4 mg 11/23/21 10:00 11/23/21 09:41 Tamsulosin 0.4 Mg Cap PO 0.4 mg DAILY MARTHA Administration
[2021-11-24] MEDS: HYDROmorphone 0.5 MG/0.5 ML INJ IV PRN ×2 (15:20→22:38)
[2021-11-24] MEDS: TAMSULOSIN 0.4 MG CAP PO SCH (15:27)
[2021-11-24] MEDS: allopurinoL 100 MG TAB PO SCH (15:27)
[2021-11-24] MEDS: PANTOPRAZOLE 20 MG TAB PO SCH (15:27)
[2021-11-24] MEDS: FOLIC ACID 1 MG TAB PO SCH (15:27)
[2021-11-24] MEDS: SODIUM BICARBONATE 650 MG TAB PO SCH ×2 (15:27→22:15)
[2021-11-24] MEDS: FERROUS SULFATE 325 MG TAB PO SCH (15:28)
[2021-11-24] MEDS: carvediloL 6.25 MG TAB PO SCH ×2 (15:29→22:15)
[2021-11-24] MEDS: ASCORBIC ACID 500 MG TAB PO SCH ×2 (15:30→22:15)
--- NOTE | 2021-11-24 15:58 | Progress Note ---
Assessment and Plan Assessment and plan: #Bar hematuriaresolved #Acute blood loss anemiaresolved Hemoglobin 9.1-->8.0-->6.0-->9.1. Status post transfusion of 3 units packed RBCs. Urology consulted; appreciate recs Continue Alexander drip for bladder irrigation. Trend H&H every 8 hours. Fluroscopy retrograde urography (11/24/2021) with placement of a R ureteral stent to provide good drainage of the R renal collecting system. #SRINATH on CKD stage IV Creatinine 4.0 (baseline 3.4) Continue fluid resuscitation and encouraging p.o. intake. Renally dose meds and avoid nephrotoxic drugs. Nephrology consulted; pending recs. Continue to monitor with daily BMP #Hypertension #Hyperlipidemia - home medications: Coreg 6.25 mg twice daily, amlodipine 5 mg daily, Bumex 2 mg daily - current medications: Coreg 6.25 mg twice daily - SBP goal <160 and DBP goal <90 while inpatient - continue to monitor #GERD Continue home pantoprazole 20 mg daily #Overactive bladder Continue home Flomax 0.4 mg daily #Gout Currently holding home allopurinol 100 mg daily #Mild protein caloric malnutrition Albumin 3.1 Starting dietary supplementation. #Advanced care planning -Disease education conducted, care plan discussed, diagnoses discussed, prognosis discussed, and patient acknowledges understanding with care plan -Time: +30 min #Discharge planning - Patient is pending improvement of SRINATH - Case management has been made aware. - Discharge is tentatively 11/25/2021 Disposition Plan: Pending possible discharge tomorrow Total Time Spent with Patient (Minutes): 45 min History Interval history: No acute events overnight. Hospitalist Physical - Constitutional Vitals: Temp Pulse Resp BP Pulse Ox 98.8 F 70 18 153/72 98 11/24/21 11:00 11/24/21 15:29 11/24/21 11:00 11/24/21 15:29 11/24/21 11:00 General appearance: Present: no acute distress, well-nourished, other (Bar hematuria is visualized in his Flores catheter) - EENT Eyes: Present: PERRL, EOM intact ENT: hearing intact, clear oral mucosa, dentition normal - Neck Neck: Present: supple, normal ROM - Respiratory Respiratory effort: normal Respiratory: bilateral: CTA - Cardiovascular Rhythm: regular Heart Sounds: Present: S1 & S2 - Extremities Extremities: no ischemia, pulses intact, pulses symmetrical, No edema, normal temperature, normal color Peripheral Pulses: within normal limits - Abdominal General gastrointestinal: soft, non-tender, non-distended, normal bowel sounds - Integumentary Integumentary: Present: clear, warm, dry - Psychiatric Psychiatric: appropriate mood/affect, intact judgment & insight, cooperative - Neurologic Neurologic: CNII-XII intact, moves all extremities - Allied Health Allied health notes reviewed: nursing Results - Labs CBC & Chem 7: 11/24/21 05:03 11/24/21 05:03 Labs: Laboratory Last Values WBC 11.1 K/mm3 (4.5-11.0) H 11/23/21 04:29 RBC 2.00 M/mm3 (3.65-5.03) L 11/23/21 04:29 Hgb 9.1 gm/dl (11.8-15.2) L D 11/24/21 05:03 Hct 26.5 % (35.5-45.6) L D 11/24/21 05:03 MCV 95 fl (84-94) H 11/23/21 04:29 MCH 30 pg (28-32) 11/23/21 04:29 MCHC 32 % (32-34) 11/23/21 04:29 RDW 15.4 % (13.2-15.2) H 11/23/21 04:29 Plt Count 152 K/mm3 (140-440) 11/23/21 04:29 Lymph % (Auto) 6.8 % (13.4-35.0) L 11/23/21 04:29 Coke % (Auto) 8.0 % (0.0-7.3) H 11/23/21 04:29 Eos % (Auto) 0.2 % (0.0-4.3) 11/23/21 04:29 Baso % (Auto) 0.1 % (0.0-1.8) 11/23/21 04:29 Lymph # (Auto) 0.8 K/mm3 (1.2-5.4) L 11/23/21 04:29 Coke # (Auto) 0.9 K/mm3 (0.0-0.8) H 11/23/21 04:29 Eos # (Auto) 0.0 K/mm3 (0.0-0.4) 11/23/21 04:29 Baso # (Auto) 0.0 K/mm3 (0.0-0.1) 11/23/21 04:29 Seg Neutrophils % 84.9 % (40.0-70.0) H 11/23/21 04:29 Seg Neutrophils # 9.4 K/mm3 (1.8-7.7) H 11/23/21 04:29 PT 14.0 Sec. (12.2-14.9) 11/22/21 02:49 INR 0.97 (0.87-1.13) 11/22/21 02:49 APTT 28.3 Sec. (24.2-36.6) 11/22/21 02:49 Sodium 142 mmol/L (137-145) 11/24/21 05:03 Potassium 4.5 mmol/L (3.6-5.0) 11/24/21 05:03 Chloride 114.1 mmol/L (98-107) H 11/24/21 05:03 Carbon Dioxide 19 mmol/L (22-30) L 11/24/21 05:03 Anion Gap 13 mmol/L 11/24/21 05:03 BUN 70 mg/dL (9-20) H 11/24/21 05:03 Creatinine 4.0 mg/dL (0.8-1.3) H 11/24/21 05:03 Estimated GFR 18 ml/min 11/24/21 05:03 BUN/Creatinine Ratio 18 % 11/24/21 05:03 Glucose 112 mg/dL (75-100) H 11/24/21 05:03 Calcium 8.2 mg/dL (8.4-10.2) L 11/24/21 05:03 Phosphorus 3.60 mg/dL (2.5-4.5) 11/24/21 05:03 Total Bilirubin 0.30 mg/dL (0.1-1.2) 11/23/21 04:29 Direct Bilirubin < 0.2 mg/dL (0-0.2) 11/22/21 02:49 Indirect Bilirubin 0.1 mg/dL 11/22/21 02:49 AST 15 units/L (5-40) 11/23/21 04:29 ALT 12 units/L (7-56) 11/23/21 04:29 Alkaline Phosphatase 46 units/L (35-129) 11/23/21 04:29 Total Protein 5.0 g/dL (6.3-8.2) L D 11/23/21 04:29 Albumin 3.1 g/dL (3.9-5) L 11/23/21 04:29 Albumin/Globulin Ratio 1.6 % 11/23/21 04:29 Lipase 98 units/L (13-60) H 11/22/21 02:49 Urine Color Red (Yellow) 11/22/21 03:53 Urine Turbidity Turbid (Clear) 11/22/21 03:53 Specific [place] (Man) 1.020 (1.003-1.030) 11/22/21 03:53 Ur Protein (Man) >500 mg/dL (Negative) 11/22/21 03:53 Ur Ketones (Man) Negative (Negative) 11/22/21 03:53 Ur Nitrite (Man) Negative (Negative) 11/22/21 03:53 Urine Bilirubin (Man) Negative (Negative) 11/22/21 03:53 Urine Ictotest Not Reportable 11/22/21 03:53 Leukocyte Esterase (Man) Small (Negative) 11/22/21 03:53 Urine WBC (Auto) 52.0 /HPF (0.0-6.0) H 11/22/21 03:53 Urine RBC (Auto) > 182.0 /HPF (0.0-6.0) 11/22/21 03:53 Urine RBC (Manual) 3+ (Negative) 11/22/21 03:53 Urine Eosinophils Few (None Seen) 11/23/21 15:50 Urine Creatinine 78.6 mg/dL (0.1-20.0) H 11/23/21 15:50 Urine Sodium 67 mmol/L 11/23/21 15:50 Urine Total Protein 158 mg/dL (5-11.8) H 11/23/21 15:50 Blood Type A POSITIVE 11/22/21 14:00 Antibody Screen Negative 11/22/21 14:00 Crossmatch See Detail 11/22/21 14:00 Microbiology: Microbiology 11/22/21 03:53 Urine,Clean Catch Urine Culture - Final NO GROWTH AFTER 48 HOURS Flores/IV: Voiding Method Indwelling Catheter Active Medications - Current Medications Current Medications: Generic Name Dose Route Start Last Admin Trade Name Freq PRN Reason Stop Dose Admin Acetaminophen 650 mg 11/22/21 18:30 Acetaminophen 325 Mg Tab PO Q4H PRN Pain MILD(1-3)/Fever >100.5/CALVILLO Allopurinol 100 mg 11/23/21 10:00 11/24/21 15:27 Allopurinol 100 Mg Tab PO 100 mg QDAY MARTHA Administration Ascorbic Acid 500 mg 11/23/21 10:00 11/24/21 15:30 Ascorbic Acid 500 Mg Tab PO 500 mg BID MARTHA Administration Carvedilol 6.25 mg 11/23/21 10:00 11/24/21 15:29 Carvedilol 6.25 Mg Tab PO 6.25 mg BID MARTHA Administration Ferrous Sulfate 325 mg 11/23/21 10:00 11/24/21 15:28 Ferrous Sulfate 325 Mg Tab PO 325 mg DAILY MARTHA Administration Folic Acid 0.5 mg 11/23/21 10:00 11/24/21 15:27 Folic Acid 1 Mg Tab PO 0.5 mg QDAY MARTHA Administration Hydromorphone HCl 1 mg 11/22/21 18:30 11/24/21 15:20 Hydromorphone 0.5 Mg/0.5 Ml Inj IV 1 mg Q3H PRN Administration Pain , Severe (7-10) Hydromorphone HCl 0.25 mg 11/24/21 08:01 Hydromorphone 0.5 Mg/0.5 Ml Inj IV 11/24/21 23:00 Q10MIN PRN Pain, Moderate (4-6) Hydromorphone HCl 0.5 mg 11/24/21 08:01 Hydromorphone 0.5 Mg/0.5 Ml Inj IV 11/24/21 23:00 Q10MIN PRN Pain , Severe (7-10) Dextrose/Sodium Chloride 1,000 mls @ 100 mls/hr 11/22/21 19:00 11/24/21 09:46 D5ns IV 100 mls/hr DIRECT MARTHA Administration Megestrol Acetate 40 mg 11/23/21 10:00 11/24/21 15:28 Megestrol 40 Mg Tab PO 40 mg QID MARTHA Administration Metoclopramide HCl 5 mg 11/23/21 08:00 Metoclopramide 10 Mg/2 Ml Inj IV Q6H PRN Nausea And Vomiting Morphine Sulfate 2 mg 11/22/21 11:46 11/22/21 17:46 Morphine 2 Mg/1 Ml Inj IV 2 mg Q4H PRN Administration Pain, Moderate (4-6) Ondansetron HCl 4 mg 11/22/21 18:30 Ondansetron 4 Mg/2 Ml Inj IV Q3H PRN Nausea And Vomiting Ondansetron HCl 4 mg 11/24/21 08:01 Ondansetron 4 Mg/2 Ml Inj IV 11/24/21 18:00 ONCE PRN Nausea And Vomiting Oxycodone/Acetaminophen 1 tab 11/22/21 18:30 11/23/21 21:20 Oxycodone /Acetaminophen 5-325mg Tab PO 1 tab Q6H PRN Administration Pain, Moderate (4-6) Pantoprazole Sodium 20 mg 11/23/21 08:00 11/24/21 15:27 Pantoprazole 20 Mg Tab PO 20 mg QDAC MARTHA Administration Sodium Bicarbonate 650 mg 11/23/21 10:00 11/24/21 15:27 Sodium Bicarbonate 650 Mg Tab PO 650 mg BID MARTHA Administration Sodium Chloride 2,000 ml 11/22/21 05:00 11/22/21 06:10 Sodium Chloride 0.9% Irrig Soln 2000 Ml IR 2,000 ml DIRECT PRN Administration IRRIGATION Sodium Chloride 10 ml 11/22/21 22:00 11/23/21 21:25 Sodium Chloride 0.9% 10 Ml Flush Syringe IV 10 ml BID MARTHA Administration Sodium Chloride 10 ml 11/22/21 18:30 Sodium Chloride 0.9% 10 Ml Flush Syringe IV PRN PRN LINE FLUSH Sodium Chloride 500 ml 11/22/21 19:22 11/22/21 21:06 Sodium Chloride 0.9% Irr 500 Ml Bottle IR 500 ml DIRECT PRN Administration bladder irrigation Tamsulosin HCl 0.4 mg 11/23/21 10:00 11/24/21 15:27 Tamsulosin 0.4 Mg Cap PO 0.4 mg DAILY MARTHA Administration
[2021-11-24 16:32] LABS: Hematocrit 30.5 % (35.5-45.6)
[2021-11-25 05:30] LABS: Basophils % (Auto) 0.3 % (0.0-1.8); Eosinophils # (Auto) 0.2 K/mm3 (0.0-0.4); Eosinophils % (Auto) 2.4 % (0.0-4.3); Hematocrit 26.9 % (35.5-45.6); Mean Corpuscular HGB Conc 33 % (32-34); Mean Corpuscular Volume 90 fl (84-94); Monocytes # (Auto) 0.6 K/mm3 (0.0-0.8); Monocytes % (Auto) 7.3 % (0.0-7.3); Platelet Count 115 K/mm3 (140-440); Red Blood Count 2.99 M/mm3 (3.65-5.03); Red Cell Distribution Width 15.7 % (13.2-15.2)
[2021-11-25 06:16] LABS: Calcium 8.1 mg/dL (8.4-10.2)
[2021-11-25] MEDS: SODIUM BICARBONATE 650 MG TAB PO SCH (09:16)
[2021-11-25] MEDS: ASCORBIC ACID 500 MG TAB PO SCH (09:16)
[2021-11-25] MEDS: FERROUS SULFATE 325 MG TAB PO SCH (09:16)
[2021-11-25] MEDS: TAMSULOSIN 0.4 MG CAP PO SCH (09:16)
[2021-11-25] MEDS: FOLIC ACID 1 MG TAB PO SCH (09:16)
[2021-11-25] MEDS: PANTOPRAZOLE 20 MG TAB PO SCH (09:17)
[2021-11-25] MEDS: carvediloL 6.25 MG TAB PO SCH (09:17)
[2021-11-25] MEDS: MEGESTROL 40 MG TAB PO SCH (09:17)
[2021-11-25] MEDS: allopurinoL 100 MG TAB PO SCH (09:17)
--- NOTE | 2021-11-25 09:47 | Discharge Summary ---
Providers - Providers Date of Admission: 11/22/21 11:46 Date of discharge: 11/25/21 Attending physician: GLORIA MARIE MD 11/22/21 18:30 Consult to Physician [CONS] Routine Comment: Consulting Provider: KASSIDY TOMPKINS Physician Instructions: Reason For Exam: Hematuria 11/22/21 18:36 Consult to Physician [CONS] Routine Comment: Consulting Provider: ROION SALAMANCA Physician Instructions: Reason For Exam: SRINATH/CKD Hospitalization Reason for admission: Roseline hematuria, acute blood loss anemia, SRINATH on CKD stage IV Condition: Stable Pertinent studies: Reviewed. Procedures: Fluoroscopic cystoscopy retrograde with right renal stent placed Hospital course: Patient is a 76-year-old male with past medical history of CKD stage IV, distant prostate cancer status post cystectomy, hypertension, gout, and spastic bladder who presented to the ED with painless hematuria with roseline blood. Patient also described having diarrhea for 2 previous days prior to presentation that has since ceased. Patient denies any fevers, chills, trauma, or sick contacts. In the ED, the patient was found to be hemodynamically stable. His labs were remarkable for bicarbonate 17, creatinine 3.8 (baseline 3.4), and hemoglobin 8.1. The patient was started on continuous bladder irrigation that failed to clear, prompting the patient to be admitted for further management. Patient's hemoglobin dropped to as low as 6.0. Patient was transfused a total of 3 units packed RBCs. Urology was consulted for further management. Patient underwent fluoroscopic retrograde urography (11/24/2021) with placement of a right ureteral stent to provide good drainage of the right renal collecting duct. The patient's SRINATH has since resolved, and the patient is back at his baseline creatinine. The patient will be discharged home with a Flores catheter and follow-up with urology either in [place] or associated with the ND in [facility]. Patient expressed understanding. Patient is medically clear for discharge. Disposition: 01 HOME / SELF CARE / HOMELESS Final Discharge Diagnosis (Prints w/discharge instructions): Roseline hematuria, acute blood loss anemia, SRINATH on CKD stage IV secondary to vasomotor nephropathy, hypertension, hyperlipidemia, GERD, overactive bladder, gout, mild protein caloric malnutrition. Time spent for discharge: 45 min Core Measure Documentation - Palliative Care Palliative Care/ Comfort Measures: Not Applicable - Core Measures Any of the following diagnoses?: none Exam - Constitutional Vitals: Temp Pulse Resp BP Pulse Ox 98.0 F 69 18 143/74 95 11/25/21 05:03 11/25/21 05:03 11/25/21 05:03 11/25/21 05:03 11/25/21 05:03 General appearance: Present: no acute distress, well-nourished - EENT Eyes: Present: PERRL, EOM intact ENT: hearing intact, clear oral mucosa, dentition normal - Neck Neck: Present: supple, normal ROM - Respiratory Respiratory effort: normal Respiratory: bilateral: CTA - Cardiovascular Rhythm: regular Heart Sounds: Present: S1 & S2 - Extremities Extremities: no ischemia, pulses intact, pulses symmetrical, No edema, normal temperature, normal color Peripheral Pulses: within normal limits - Abdominal General gastrointestinal: Present: soft, non-tender, non-distended, normal bowel sounds Male genitourinary: Present: normal (Flores catheter in place) - Rectal Rectal Exam: deferred - Integumentary Integumentary: Present: clear, warm, dry - Musculoskeletal Musculoskeletal: strength equal bilaterally - Psychiatric Psychiatric: appropriate mood/affect, intact judgment & insight, memory intact, cooperative - Neurologic Neurologic: CNII-XII intact, moves all extremities - Allied Health Allied health notes reviewed: nursing Plan Activity: advance as tolerated Diet: low salt Additional Instructions: Patient is a 76-year-old male with past medical history of CKD stage IV, distant prostate cancer status post cystectomy, hypertension, gout, and spastic bladder who presented to the ED with painless hematuria with roseline blood. Patient also described having diarrhea for 2 previous days prior to presentation that has since ceased. Patient denies any fevers, chills, trauma, or sick contacts. In the ED, the patient was found to be hemodynamically stable. His labs were remarkable for bicarbonate 17, creatinine 3.8 (baseline 3.4), and hemoglobin 8.1. The patient was started on continuous bladder irrigation that failed to clear, prompting the patient to be admitted for further management. Patient's hemoglobin dropped to as low as 6.0. Patient was transfused a total of 3 units packed RBCs. Urology was consulted for further management. Patient underwent fluoroscopic retrograde urography (11/24/2021) with placement of a right ureteral stent to provide good drainage of the right renal collecting duct. The patient's SRINATH has since resolved, and the patient is back at his baseline creatinine. The patient will be discharged home with a Flores catheter and follow-up with urology either in [place] or associated with the ND in [facility]. Patient expressed understanding. Patient is medically clear for discharge. Care Plan Goals: Patient is medically clear for discharge. Assessment: Patient is a 76-year-old male with past medical history of CKD stage IV, distant prostate cancer status post cystectomy, hypertension, gout, and spastic bladder who presented to the ED with painless hematuria with roseline blood. Patient also described having diarrhea for 2 previous days prior to presentation that has since ceased. Patient denies any fevers, chills, trauma, or sick contacts. In the ED, the patient was found to be hemodynamically stable. His labs were remarkable for bicarbonate 17, creatinine 3.8 (baseline 3.4), and hemoglobin 8.1. The patient was started on continuous bladder irrigation that failed to clear, prompting the patient to be admitted for further management. Patient's hemoglobin dropped to as low as 6.0. Patient was transfused a total of 3 units packed RBCs. Urology was consulted for further management. Patient underwent fluoroscopic retrograde urography (11/24/2021) with placement of a right ureteral stent to provide good drainage of the right renal collecting duct. The patient's SRINATH has since resolved, and the patient is back at his baseline creatinine. The patient will be discharged home with a Flores catheter and follow-up with urology either in [place] or associated with the ND in [facility]. Patient expressed understanding. Patient is medically clear for discharge. Follow up with: [facility] [Other] - 3-5 Days
--- NOTE | 2021-11-25 11:54 | Progress Note ---
Subjective Date of service: 11/25/21 Principal diagnosis: CKD, Hydronephrosis Objective - Vital Signs Vital signs: Vital Signs - 12hr 11/25/21 11/25/21 05:03 10:47 Temperature 98.0 F Pulse Rate 69 Respiratory 18 20 Rate Blood Pressure 143/74 O2 Sat by Pulse 95 96 Oximetry - Lab 11/25/21 04:29 11/25/21 04:29 Most recent lab results Calcium 8.1 mg/dL (8.4-10.2) L 11/25/21 04:29 Phosphorus 3.60 mg/dL (2.5-4.5) 11/24/21 05:03 Urine Creatinine 78.6 mg/dL (0.1-20.0) H 11/23/21 15:50 Urine Sodium 67 mmol/L 11/23/21 15:50 Urine Total Protein 158 mg/dL (5-11.8) H 11/23/21 15:50 Medications & Allergies - Medications Allergies/Adverse Reactions: Allergies No Known Allergies Allergy (Verified 11/21/21 15:22) Home Medications: Home Medications Medication Instructions Recorded Confirmed Last Taken Type Ascorbic Acid [Vitamin C with Jenn 500 mg PO BID 11/22/21 11/22/21 11/21/21 History Hips] 0900 Atorvastatin Calcium 40 mg PO QAM 11/22/21 11/22/21 11/21/21 History Bumetanide [Bumetanide 2 mg tab] 2 mg DAILY 11/22/21 11/22/21 11/22/21 History Cyanocobalamin [Vitamin B-12] 1,000 mcg PO DAILY 11/22/21 11/22/21 11/21/21 History Donepezil HCl 10 mg HS 11/22/21 11/22/21 11/21/21 History Ferrous Sulfate [Ferrous Sulfate 324 mg PO DAILY 11/22/21 11/22/21 11/21/21 History 324 MG] Folic Acid [Folvite] 0.5 mg PO QDAY 11/22/21 11/22/21 11/21/21 History Megestrol Acetate 40 mg PO QID 11/22/21 11/22/21 11/21/21 History Pantoprazole Sodium 20 mg PO DAILY 11/22/21 11/22/21 11/21/21 History Sodium Bicarbonate 650 mg PO BID 0911/22/21 11/21/21 History Tamsulosin [Flomax] 0.4 mg DAILY 11/22/21 11/22/21 11/21/21 History 899 allopurinoL [Zyloprim] 100 mg PO QDAY 11/22/21 11/22/21 11/21/21 History amLODIPine 5 mg PO DAILY 11/22/21 11/22/21 11/21/21 History carvediloL [Coreg] 6.25 mg PO BID 11/22/21 11/22/21 11/21/21 History Active Medications: Generic Name Dose Route Start Last Admin Trade Name Freq PRN Reason Stop Dose Admin Acetaminophen 650 mg 11/22/21 18:30 Acetaminophen 325 Mg Tab PO Q4H PRN Pain MILD(1-3)/Fever >100.5/CALVILLO Allopurinol 100 mg 11/23/21 10:00 11/25/21 09:17 Allopurinol 100 Mg Tab PO 100 mg QDAY MARTHA Administration Ascorbic Acid 500 mg 11/23/21 10:00 11/25/21 09:16 Ascorbic Acid 500 Mg Tab PO 500 mg BID MARTHA Administration Carvedilol 6.25 mg 11/23/21 10:00 11/25/21 09:17 Carvedilol 6.25 Mg Tab PO 6.25 mg BID MARTHA Administration Ferrous Sulfate 325 mg 11/23/21 10:00 11/25/21 09:16 Ferrous Sulfate 325 Mg Tab PO 325 mg DAILY MARTHA Administration Folic Acid 0.5 mg 11/23/21 10:00 11/25/21 09:16 Folic Acid 1 Mg Tab PO 0.5 mg QDAY MARTHA Administration Hydromorphone HCl 1 mg 11/22/21 18:30 11/24/21 22:38 Hydromorphone 0.5 Mg/0.5 Ml Inj IV 1 mg Q3H PRN Administration Pain , Severe (7-10) Dextrose/Sodium Chloride 1,000 mls @ 100 mls/hr 11/22/21 19:00 11/24/21 22:15 D5ns IV 100 mls/hr DIRECT MARTHA Administration Megestrol Acetate 40 mg 11/23/21 10:00 11/25/21 09:17 Megestrol 40 Mg Tab PO 40 mg QID MARTHA Administration Metoclopramide HCl 5 mg 11/23/21 08:00 Metoclopramide 10 Mg/2 Ml Inj IV Q6H PRN Nausea And Vomiting Morphine Sulfate 2 mg 11/22/21 11:46 11/22/21 17:46 Morphine 2 Mg/1 Ml Inj IV 2 mg Q4H PRN Administration Pain, Moderate (4-6) Ondansetron HCl 4 mg 11/22/21 18:30 Ondansetron 4 Mg/2 Ml Inj IV Q3H PRN Nausea And Vomiting Oxycodone/Acetaminophen 1 tab 11/22/21 18:30 11/23/21 21:20 Oxycodone /Acetaminophen 5-325mg Tab PO 1 tab Q6H PRN Administration Pain, Moderate (4-6) Pantoprazole Sodium 20 mg 11/23/21 08:00 11/25/21 09:17 Pantoprazole 20 Mg Tab PO 20 mg QDAC MARTHA Administration Sodium Chloride 2,000 ml 11/22/21 05:00 11/22/21 06:10 Sodium Chloride 0.9% Irrig Soln 2000 Ml IR 2,000 ml DIRECT PRN Administration IRRIGATION Sodium Chloride 10 ml 11/22/21 22:00 11/25/21 09:17 Sodium Chloride 0.9% 10 Ml Flush Syringe IV 10 ml BID MARTHA Administration Sodium Chloride 10 ml 11/22/21 18:30 11/24/21 22:42 Sodium Chloride 0.9% 10 Ml Flush Syringe IV 10 ml PRN PRN Administration LINE FLUSH Sodium Chloride 500 ml 11/22/21 19:22 11/22/21 21:06 Sodium Chloride 0.9% Irr 500 Ml Bottle IR 500 ml DIRECT PRN Administration bladder irrigation Tamsulosin HCl 0.4 mg 11/23/21 10:00 11/25/21 09:16 Tamsulosin 0.4 Mg Cap PO 0.4 mg DAILY MARTHA Administration
[2021-11-25 12:22] VITALS: BP 142/68
[2021-11-25] MEDS ORDERED: SODIUM BICARBONATE 650 MG TAB PO SCH (14:00)
== END 2021-11-25 02:00 | disposition home or self-care (01) | DRG 660 ==
LOC: ED 15:03 → 3A 11-22 11:46
PROVIDERS: ADMIT Internal Medicine; ATTEND Student in an Organized Health Care Education/Training Program
PROC: 30233N1 Transfusion of Nonautologous Red Blood Cells into Peripheral Vein, Percutaneous Approach (ICD-10-PCS; 2021-11-23)
PROC: 0T768DZ Dilation of Right Ureter with Intraluminal Device, Via Natural or Artificial Opening Endoscopic (ICD-10-PCS; principal; 2021-11-24)
PROC: BT141ZZ Fluoroscopy of Kidneys, Ureters and Bladder using Low Osmolar Contrast (ICD-10-PCS; 2021-11-24)
DX: N13.30 Unspecified hydronephrosis (principal); D62 Acute posthemorrhagic anemia; E44.1 Mild protein-calorie malnutrition; E87.2 Acidosis; N17.0 Acute kidney failure with tubular necrosis; N18.4 Chronic kidney disease, stage 4 (severe); I12.9 Hypertensive chronic kidney disease with stage 1 through stage 4 chronic kidney disease, or unspecified chronic kidney disease; N32.89 Other specified disorders of bladder; R19.7 Diarrhea, unspecified; E78.2 Mixed hyperlipidemia; R31.0 Gross hematuria; M10.9 Gout, unspecified; Z68.22 Body mass index [BMI] 22.0-22.9, adult; Z85.46 Personal history of malignant neoplasm of prostate; Z82.49 Family history of ischemic heart disease and other diseases of the circulatory system
CPT/HCPCS: 36415; 74176; 74420; 80048; 80053; 80076; 81001; 82570; 83690; 84100; 84156; 84300; 85014; 85018; 85025; 85610; 85730; 86850; 86900; 86901; 86920; 87086; 89050; G0378; J3490; C1758; C1769; C2617; J0690; J1170; J2270; J2704; J7030; J7040; J7042; P9016; Q9967